=== PATIENT | female | born 1935 | race Caucasian/White ===

== ENCOUNTER → 2016-06-05 | Outpatient (CLI) | payer OTHER ==
[~2016-06-05] MED LIST: LEVO200I5 IV; QUE25T GT; TEMA7.5C11 PO
[2016-06-05 13:40] LABS: Basophils # (auto) 0 uL; Basophils % (auto) 0.4 % (0.0-2.0); Eosinophils # (auto) 0.1 uL; Eosinophils % (auto) 1.2 % (0.0-7.0); Hematocrit 44.6 % (36.0-46.0); Hemoglobin 14.7 g/dL (12.2-16.2); Lymphocytes # (auto) 2.3 uL; Mean Corpuscular Hemoglobin 28.9 pg (28.0-32.0); Mean Corpuscular Volume 87.5 fL (80.0-100.0); Mean Platelet Volume 9.8 fL (7.4-10.4); Monocytes # (auto) 0.5 uL; Monocytes % (auto) 8.8 % (0.0-12.0); Neutrophils % (auto) 50.6 % (37.0-80.0); Platelet Count (auto) 287 10^3/uL (140-450); Red Cell Distribution Width 13.9 % (11.6-16.0); White Blood Cell 5.9 10^3/uL (4.4-10.8)
[2016-06-05 14:13] LABS: Albumin 4.1 g/dL (3.4-5.0); BUN/Creatinine Ratio 19.8; Bilirubin, Total 0.6 mg/dL (0.2-1.0); Calcium 9.5 mg/dL (8.5-10.1); Potassium 4.4 mmol/L (3.5-5.1); Total Protein 7.8 g/dL (6.4-8.2)
== END | disposition home or self-care (01) ==
LOC: LAB 13:10
PROVIDERS: ATTEND Internal Medicine
DX: E78.00 Pure hypercholesterolemia, unspecified (principal)
CPT/HCPCS: 36415; 80053; 84439; 84443; 85025; 85379

== ENCOUNTER → 2016-11-21 | Outpatient (CLI) | payer OTHER ==
[2016-11-21 09:20] LABS: Albumin 2.9 g/dL (3.4-5.0); BUN/Creatinine Ratio 12.9; Bilirubin, Total 0.4 mg/dL (0.2-1.0); Calcium 8.9 mg/dL (8.5-10.1); Potassium 5.1 mmol/L (3.5-5.1); Total Protein 7.1 g/dL (6.4-8.2)
== END | disposition home or self-care (01) ==
LOC: LAB 08:34
PROVIDERS: ATTEND Internal Medicine
DX: E03.9 Hypothyroidism, unspecified (principal)
CPT/HCPCS: 36415; 80053; 84439; 84443

== ENCOUNTER → 2017-01-20 | Outpatient (CLI) | payer OTHER ==
[2017-01-20 13:19] LABS: Basophils # (auto) 0 uL; Basophils % (auto) 0.5 % (0.0-2.0); CONDITION Y; Eosinophils # (auto) 0.1 uL; Hematocrit 42.2 % (36.0-46.0); Hemoglobin 14.3 g/dL (12.2-16.2); Mean Corpuscular Hemoglobin 29.7 pg (28.0-32.0); Mean Corpuscular Volume 87.4 fL (80.0-100.0); Mean Platelet Volume 9.7 fL (7.4-10.4); Monocytes # (auto) 0.4 uL; Monocytes % (auto) 8.2 % (0.0-12.0); Neutrophils # (auto) 2.7 uL; Neutrophils % (auto) 51.3 % (37.0-80.0); Platelet Count (auto) 273 10^3/uL (140-450); Red Cell Distribution Width 15.3 % (11.6-16.0); White Blood Cell 5.4 10^3/uL (4.4-10.8)
[2017-01-20 13:49] LABS: Albumin 3.7 g/dL (3.4-5.0); BUN/Creatinine Ratio 15.7; Bilirubin, Total 0.6 mg/dL (0.2-1.0); Potassium 4.3 mmol/L (3.5-5.1); Total Protein 7.4 g/dL (6.4-8.2)
== END | disposition home or self-care (01) ==
LOC: LAB 12:40
PROVIDERS: ATTEND Internal Medicine
DX: E78.00 Pure hypercholesterolemia, unspecified (principal); I50.9 Heart failure, unspecified; J44.9 Chronic obstructive pulmonary disease, unspecified
CPT/HCPCS: 36415; 80053; 80061; 85025

== ENCOUNTER → 2017-05-02 | Outpatient (CLI) | payer OTHER | END | disposition home or self-care (01) | LOC: LAB 11:46 | PROVIDERS: ATTEND Internal Medicine | DX: N39.0 Urinary tract infection, site not specified (principal); K59.00 Constipation, unspecified | CPT/HCPCS: 87086; 87088; 87186 ==

== ENCOUNTER → 2017-09-10 | Outpatient (CLI) | payer OTHER ==
[2017-09-10 10:56] LABS: Basophils # (auto) 0.1 uL; Basophils % (auto) 1.2 % (0.0-2.0); Eosinophils # (auto) 0.1 uL; Eosinophils % (auto) 3.6 % (0.0-7.0); Hematocrit 43.3 % (36.0-46.0); Hemoglobin 14.6 g/dL (12.2-16.2); Lymphocytes # (auto) 1.4 uL; Lymphocytes % (auto) 34.8 % (10.0-50.0); Mean Corpuscular Hemoglobin 29.6 pg (28.0-32.0); Mean Corpuscular Hgb Conc. 33.8 g/dL (32.0-36.0); Mean Corpuscular Volume 87.6 fL (80.0-100.0); Monocytes # (auto) 0.5 uL; Monocytes % (auto) 11.1 % (0.0-12.0); Neutrophils % (auto) 49.3 % (37.0-80.0); Platelet Count (auto) 228 10^3/uL (140-450); Red Blood Cells 4.94 10^6/uL (4.0-5.20); Red Cell Distribution Width 13.4 % (11.8-14.3); White Blood Cell 4.1 10^3/uL (4.4-10.8)
[2017-09-10 11:24] LABS: Albumin 3.6 g/dL (3.4-5.0); BUN/Creatinine Ratio 21.1; Bilirubin, Total 0.5 mg/dL (0.2-1.0); Calcium 8.7 mg/dL (8.5-10.1); Potassium 4.2 mmol/L (3.5-5.1); Total Protein 7.3 g/dL (6.4-8.2)
== END | disposition home or self-care (01) ==
LOC: LAB 10:20
PROVIDERS: ATTEND Internal Medicine
DX: N18.3 Chronic kidney disease, stage 3 (moderate) (principal); E78.00 Pure hypercholesterolemia, unspecified; J44.9 Chronic obstructive pulmonary disease, unspecified
CPT/HCPCS: 36415; 80053; 85025

== ENCOUNTER 2017-11-25 19:28 | Inpatient (IN) | payer MEDICARE, OTHER ==
[~2017-11-25] VITALS: Ht 160 cm; Wt 74.3 kg
[2017-11-25 20:32] LABS: Basophils # (auto) 0.1 uL; Basophils % (auto) 0.7 % (0.0-2.0); Eosinophils # (auto) 0 uL; Eosinophils % (auto) 0.1 % (0.0-7.0); Hematocrit 40.9 % (36.0-46.0); Hemoglobin 13.7 g/dL (12.2-16.2); Lymphocytes # (auto) 2.8 uL; Lymphocytes % (auto) 19.8 % (10.0-50.0); Mean Corpuscular Hemoglobin 29.6 pg (28.0-32.0); Mean Corpuscular Hgb Conc. 33.5 g/dL (32.0-36.0); Mean Corpuscular Volume 88.4 fL (80.0-100.0); Monocytes % (auto) 6.8 % (0.0-12.0); Neutrophils # (auto) 10.4 uL; Neutrophils % (auto) 72.6 % (37.0-80.0); Nucleated Red Blood Cells % 0.1 %; Platelet Count (auto) 164 10^3/uL (140-450); Red Blood Cells 4.62 10^6/uL (4.0-5.20); Red Cell Distribution Width 13.9 % (11.8-14.3); White Blood Cell 14.3 10^3/uL (4.4-10.8)
[2017-11-25 20:49] LABS: Albumin 3.3 g/dL (3.4-5.0); BUN/Creatinine Ratio 14.2; Calcium 8.2 mg/dL (8.5-10.1); Potassium 3.8 mmol/L (3.5-5.1)
[2017-11-25 21:06] LABS: Urine Bacteria FEW /hpf (None Seen); Urine Blood TRACE /uL (Negative); Urine Specific Gravity 1.004 (1.001-1.035); Urine WBC 7 /hpf (0 - 5)
[2017-11-25 21:06] LABS: Total Protein 7.3 g/dL (6.4-8.2)
[2017-11-25] MEDS ORDERED: ASPirin 81 mg TAB PO ONE (22:00)
[2017-11-26] MEDS ORDERED: SODIUM CHLORIDE 0.9% 500 ML IV ONE ×2 (02:15→02:45)
[2017-11-26] MEDS ORDERED: diphenhdrAMINE HCL 50 MG/1 ML VL ONE (03:58)
[2017-11-26] MEDS ORDERED: cefTRIAXone 1GM/10ml IVPUSH 10 ML IV ONE (04:14)
[2017-11-26] MEDS ORDERED: ONDANSETRON HCL 4 MG/2 ML VIAL IV PRN (06:15)
[2017-11-26] MEDS ORDERED: LORazepam 0.5 MG TAB PO PRN (06:15)
[2017-11-26] MEDS ORDERED: MORPHINE SULF INJ 2 MG/ML SYRINGE 1ML IV PRN ×2 (06:15)
[2017-11-26] MEDS ORDERED: diphenhdrAMINE HCL 50 MG/1 ML VL IV PRN (06:15)
[2017-11-26] MEDS ORDERED: NITROGLYCERIN 0.4 MG SL TAB SL PRN (06:15)
[2017-11-26] MEDS ORDERED: ACETAMINOPHEN 325 MG TAB PO PRN (06:15)
[2017-11-26] MEDS: SODIUM CHLORIDE 0.9% 1,000 ML IV SCH ×2 (06:36→19:35)
[2017-11-26] MEDS: LEVOTHYROXINE SODIUM 25 MCG TAB PO SCH (07:30)
[2017-11-26] MEDS: HYDROcodone-ACET 5/325MG TAB PO PRN (08:31)
[2017-11-26] MEDS: ASPirin 81 mg TAB PO SCH (10:30)
[2017-11-26] MEDS: DOCUSATE SOD 100 MG CAP PO SCH ×2 (10:30→21:21)
[2017-11-26] MEDS: VENLAFAXINE HCL 37.5MG TABLET PO SCH (10:30)
[2017-11-26] MEDS: PANTOPRAZOLE 40 MG/10 ML VIAL IV SCH (10:30)
[2017-11-26] MEDS: ENOXAPARIN SOD 40 MG/0.4 ML SYRINGE SC SCH (10:31)
[2017-11-26] MEDS: AZITHROMYCIN 500MG/ 250ML 250 ML IV SCH (10:34)
[2017-11-26] MEDS ORDERED: QUET200T3 PO (16:13)
[2017-11-26] MEDS ORDERED: ROPI0.5T PO (16:13)
[2017-11-26] MEDS ORDERED: VEN75XRT PO (16:13)
[2017-11-26] MEDS ORDERED: LEVO50TA7 PO (16:13)
[2017-11-26] MEDS ORDERED: GABA300C10 PO (16:13)
[2017-11-26] MEDS ORDERED: ATOR20TA50 PO (16:13)
[2017-11-26] MEDS ORDERED: OMEP20TA PO (16:13)
[2017-11-26 17:19] VITALS: BP 96/47
[2017-11-26] MEDS: QUEtiapine FUMARATE 100 MG TAB PO SCH (21:21)
[2017-11-26 22:00] VITALS: BP 117/60
[2017-11-26] MEDS: ALBUTEROL SULF 2.5 MG/0.5ML(0.5%) NEB SOLN NEB PRN (22:30)
[2017-11-27 05:00] VITALS: BP 108/65
[2017-11-27] MEDS: LEVOTHYROXINE SODIUM 25 MCG TAB PO SCH (06:00)
[2017-11-27 06:18] LABS: Basophils # (auto) 0 uL; Basophils % (auto) 0.3 % (0.0-2.0); Eosinophils # (auto) 0.2 uL; Eosinophils % (auto) 3.2 % (0.0-7.0); Hematocrit 36.5 % (36.0-46.0); Hemoglobin 12.5 g/dL (12.2-16.2); Lymphocytes # (auto) 1.3 uL; Lymphocytes % (auto) 20.8 % (10.0-50.0); Mean Corpuscular Hgb Conc. 34.3 g/dL (32.0-36.0); Mean Corpuscular Volume 87.4 fL (80.0-100.0); Monocytes # (auto) 0.6 uL; Monocytes % (auto) 9.7 % (0.0-12.0); Neutrophils # (auto) 4.1 uL; Platelet Count (auto) 148 10^3/uL (140-450); Red Blood Cells 4.18 10^6/uL (4.0-5.20); Red Cell Distribution Width 13.9 % (11.8-14.3); White Blood Cell 6.2 10^3/uL (4.4-10.8)
[2017-11-27 06:42] LABS: BUN/Creatinine Ratio 19.1; Calcium 8.3 mg/dL (8.5-10.1)
[2017-11-27 09:00] VITALS: BP 102/44
[2017-11-27] MEDS ORDERED: cefTRIAXone 1GM/10ml IVPUSH 10 ML IV SCH (10:00)
[2017-11-27] MEDS: PANTOPRAZOLE 40 MG/10 ML VIAL IV SCH (10:18)
[2017-11-27] MEDS: AZITHROMYCIN 500MG/ 250ML 250 ML IV SCH (10:19)
[2017-11-27] MEDS: VENLAFAXINE HCL 37.5MG TABLET PO SCH (10:20)
[2017-11-27] MEDS: ASPirin 81 mg TAB PO SCH (10:20)
[2017-11-27] MEDS: ENOXAPARIN SOD 40 MG/0.4 ML SYRINGE SC SCH (10:20)
[2017-11-27] MEDS: DOCUSATE SOD 100 MG CAP PO SCH ×2 (10:20→21:21)
[2017-11-27] MEDS: ALBUTEROL SULF 2.5 MG/0.5ML(0.5%) NEB SOLN NEB PRN ×2 (10:25→19:04)
[2017-11-27] MEDS: HYDROcodone-ACET 5/325MG TAB PO PRN ×2 (12:12→22:56)
[2017-11-27] MEDS ORDERED: cefTRIAXone 1GM/10ml IVPUSH 10 ML IV ONE (12:30)
[2017-11-27] MEDS ORDERED: ADENOSINE 59 MG in GIVE UN-DILUTED 0 ML IV STA (13:27)
[2017-11-27 13:51] VITALS: BP 109/69
[2017-11-27] MEDS ORDERED: SODIUM CHLORIDE 0.9% 1,000 ML IV ONE (14:00)
[2017-11-27 16:23] LABS: INR 0.94 (0.9-1.15); Prothrombin Time 10.1 sec (9.27-12.13)
[2017-11-27 17:00] VITALS: BP 122/63
[2017-11-27] MEDS: SODIUM CHLORIDE 0.9% 1,000 ML IV SCH (19:15)
[2017-11-27 19:45] VITALS: BP 122/63
[2017-11-27] MEDS: ATORVASTATIN 20 MG TAB PO SCH (21:21)
[2017-11-27] MEDS: TEMAZEPAM 15 MG CAP PO PRN (21:21)
[2017-11-27] MEDS: QUEtiapine FUMARATE 100 MG TAB PO SCH (21:22)
[2017-11-27 22:00] VITALS: BP 132/70
[2017-11-28] MEDS: SODIUM CHLORIDE 0.9% 1,000 ML IV SCH ×3 (00:45→10:49)
[2017-11-28 05:13] VITALS: BP 130/69
[2017-11-28] MEDS: LEVOTHYROXINE SODIUM 25 MCG TAB PO SCH (05:37)
[2017-11-28 05:55] LABS: Basophils # (auto) 0 uL; Basophils % (auto) 0.6 % (0.0-2.0); Eosinophils # (auto) 0.2 uL; Eosinophils % (auto) 6.4 % (0.0-7.0); Hematocrit 35.2 % (36.0-46.0); Hemoglobin 11.9 g/dL (12.2-16.2); Lymphocytes # (auto) 1.3 uL; Lymphocytes % (auto) 33.8 % (10.0-50.0); Mean Corpuscular Hemoglobin 29.6 pg (28.0-32.0); Mean Corpuscular Hgb Conc. 33.7 g/dL (32.0-36.0); Mean Corpuscular Volume 87.9 fL (80.0-100.0); Monocytes # (auto) 0.4 uL; Monocytes % (auto) 9.7 % (0.0-12.0); Neutrophils # (auto) 1.9 uL; Neutrophils % (auto) 49.5 % (37.0-80.0); Platelet Count (auto) 161 10^3/uL (140-450); Red Blood Cells 4.01 10^6/uL (4.0-5.20); Red Cell Distribution Width 13.9 % (11.8-14.3); White Blood Cell 3.8 10^3/uL (4.4-10.8)
[2017-11-28 06:27] LABS: Albumin 2.6 g/dL (3.4-5.0); BUN/Creatinine Ratio 20.5; Bilirubin, Total 0.5 mg/dL (0.2-1.0); Potassium 4.1 mmol/L (3.5-5.1)
[2017-11-28 09:00] VITALS: BP 125/71
[2017-11-28] MEDS: ALBUTEROL SULF 2.5 MG/0.5ML(0.5%) NEB SOLN NEB PRN (10:24)
[2017-11-28] MEDS: PANTOPRAZOLE 40 MG/10 ML VIAL IV SCH (10:33)
[2017-11-28] MEDS: cefTRIAXone 1GM/10ml IVPUSH 10 ML IV SCH (10:33)
[2017-11-28] MEDS: AZITHROMYCIN 500MG/ 250ML 250 ML IV SCH (10:33)
[2017-11-28] MEDS: ASPirin 81 mg TAB PO SCH (10:34)
[2017-11-28] MEDS: DOCUSATE SOD 100 MG CAP PO SCH ×2 (10:34→22:03)
[2017-11-28] MEDS: ENOXAPARIN SOD 40 MG/0.4 ML SYRINGE SC SCH (10:35)
[2017-11-28] MEDS: VENLAFAXINE HCL 37.5MG TABLET PO SCH (10:35)
[2017-11-28 13:00] VITALS: BP 128/68
[2017-11-28] MEDS: ALBUTEROL SULF 2.5 MG/0.5ML(0.5%) NEB SOLN NEB SCH ×3 (14:15→22:47)
[2017-11-28 17:00] VITALS: BP 146/78
[2017-11-28] MEDS: HYDROcodone-ACET 5/325MG TAB PO PRN ×2 (18:10→22:30)
[2017-11-28 21:55] VITALS: BP 128/56
[2017-11-28] MEDS: ATORVASTATIN 20 MG TAB PO SCH (22:03)
[2017-11-28] MEDS: QUEtiapine FUMARATE 100 MG TAB PO SCH (22:30)
[2017-11-28] MEDS: TEMAZEPAM 15 MG CAP PO PRN (22:31)
[2017-11-29] MEDS: ALBUTEROL SULF 2.5 MG/0.5ML(0.5%) NEB SOLN NEB SCH ×3 (02:00→09:57)
[2017-11-29] MEDS: SODIUM CHLORIDE 0.9% 1,000 ML IV SCH ×3 (02:18→12:30)
[2017-11-29 05:00] VITALS: BP 131/71
[2017-11-29 06:02] LABS: Basophils # (auto) 0 uL; Basophils % (auto) 0.6 % (0.0-2.0); Eosinophils # (auto) 0.2 uL; Eosinophils % (auto) 5.4 % (0.0-7.0); Hematocrit 33.9 % (36.0-46.0); Hemoglobin 11.5 g/dL (12.2-16.2); Lymphocytes # (auto) 1.1 uL; Lymphocytes % (auto) 35.7 % (10.0-50.0); Mean Corpuscular Hemoglobin 29.8 pg (28.0-32.0); Mean Corpuscular Hgb Conc. 33.9 g/dL (32.0-36.0); Mean Corpuscular Volume 87.8 fL (80.0-100.0); Monocytes # (auto) 0.4 uL; Monocytes % (auto) 12.9 % (0.0-12.0); Neutrophils # (auto) 1.4 uL; Neutrophils % (auto) 45.4 % (37.0-80.0); Nucleated Red Blood Cells % 0.2 %; Platelet Count (auto) 179 10^3/uL (140-450); Red Blood Cells 3.86 10^6/uL (4.0-5.20); Red Cell Distribution Width 13.9 % (11.8-14.3)
[2017-11-29] MEDS: LEVOTHYROXINE SODIUM 25 MCG TAB PO SCH (06:11)
[2017-11-29 06:40] LABS: Albumin 2.6 g/dL (3.4-5.0); BUN/Creatinine Ratio 12.5; Bilirubin, Total 0.3 mg/dL (0.2-1.0); Calcium 7.8 mg/dL (8.5-10.1); Potassium 3.8 mmol/L (3.5-5.1); Total Protein 5.8 g/dL (6.4-8.2)
[2017-11-29 08:50] VITALS: BP 151/76
[2017-11-29] MEDS: ASPirin 81 mg TAB PO SCH (09:47)
[2017-11-29] MEDS: VENLAFAXINE HCL 37.5MG TABLET PO SCH (09:48)
[2017-11-29] MEDS: DOCUSATE SOD 100 MG CAP PO SCH (09:48)
[2017-11-29] MEDS: cefTRIAXone 1GM/10ml IVPUSH 10 ML IV SCH (09:48)
[2017-11-29] MEDS: PANTOPRAZOLE 40 MG/10 ML VIAL IV SCH (09:48)
[2017-11-29] MEDS: AZITHROMYCIN 500MG/ 250ML 250 ML IV SCH (09:50)
[2017-11-29] MEDS: ENOXAPARIN SOD 40 MG/0.4 ML SYRINGE SC SCH (09:51)
[2017-11-29 13:00] VITALS: BP 157/74
== END 2017-11-29 15:07 | disposition home or self-care (01) | DRG 871 ==
LOC: EDBD 19:28 → ER 19:35 → TELE 19:36 → TELE-WESTW 11-26 15:37
PROVIDERS: ADMIT Nurse Practitioner Family; ATTEND Family Medicine
DX: A41.9 Sepsis, unspecified organism (principal); G92 Toxic encephalopathy; J18.1 Lobar pneumonia, unspecified organism; N39.0 Urinary tract infection, site not specified; E87.0 Hyperosmolality and hypernatremia; E03.9 Hypothyroidism, unspecified; E78.00 Pure hypercholesterolemia, unspecified; E78.5 Hyperlipidemia, unspecified; E86.0 Dehydration; F32.9 Major depressive disorder, single episode, unspecified; I11.9 Hypertensive heart disease without heart failure; B96.29 Other Escherichia coli [E. coli] as the cause of diseases classified elsewhere; I70.0 Atherosclerosis of aorta; M16.0 Bilateral primary osteoarthritis of hip; M47.816 Spondylosis without myelopathy or radiculopathy, lumbar region; Z16.23 Resistance to quinolones and fluoroquinolones; Z90.49 Acquired absence of other specified parts of digestive tract
CPT/HCPCS: 36415; 70450; 71045; 72192; 73502; 78452; 80048; 80053; 81001; 82550; 83605; 83880; 84443; 84484; 85025; 85610; 85730; 87086; 87088; 87186; 93005; 93017; 94640; 94761; 96361; 96365; 96375; 97163; C9113; J0153

== ENCOUNTER 2018-01-01 05:22 | Emergency (ER) | payer OTHER ==
[~2018-01-01] VITALS: Ht 175.3 cm; Wt 68.0 kg
[~2018-01-01 05:22] MED LIST changes: +ATOR20TA50 PO; +GABA300C10 PO; -LEVO200I5 IV; +LEVO50TA7 PO; +OMEP20TA PO; -QUE25T GT; +QUET200T3 PO; +ROPI0.5T PO; -TEMA7.5C11 PO; +VEN75XRT PO
[2018-01-01 07:30] LABS: Basophils # (auto) 0 uL; Basophils % (auto) 0.6 % (0.0-2.0); Eosinophils # (auto) 0.2 uL; Hematocrit 40.4 % (36.0-46.0); Hemoglobin 13.6 g/dL (12.2-16.2); Lymphocytes # (auto) 1.6 uL; Lymphocytes % (auto) 27.5 % (10.0-50.0); Mean Corpuscular Hemoglobin 29.5 pg (28.0-32.0); Mean Corpuscular Hgb Conc. 33.6 g/dL (32.0-36.0); Mean Corpuscular Volume 87.8 fL (80.0-100.0); Monocytes # (auto) 0.6 uL; Monocytes % (auto) 9.4 % (0.0-12.0); Neutrophils # (auto) 3.5 uL; Neutrophils % (auto) 58.5 % (37.0-80.0); Nucleated Red Blood Cells % 0.2 %; Platelet Count (auto) 195 10^3/uL (140-450); Red Blood Cells 4.61 10^6/uL (4.0-5.20); Red Cell Distribution Width 14.3 % (11.8-14.3); White Blood Cell 5.9 10^3/uL (4.4-10.8)
[2018-01-01 07:51] LABS: Albumin 3.2 g/dL (3.4-5.0); BUN/Creatinine Ratio 17.5; Bilirubin, Total 0.4 mg/dL (0.2-1.0); Calcium 8.5 mg/dL (8.5-10.1); Potassium 4.2 mmol/L (3.5-5.1); Total Protein 7.1 g/dL (6.4-8.2)
[2018-01-01] MEDS ORDERED: ONDANSETRON HCL 4 MG/2 ML VIAL IV ONE (08:00)
[2018-01-01] MEDS ORDERED: MORPHINE SULFATE 4 MG/ML SYR/VIAL IV ONE (08:00)
[2018-01-01 09:29] VITALS: BP 122/62
== END 2018-01-01 09:07 | disposition home or self-care (01) ==
LOC: EDBD 05:22 → ER 05:30
DX: R55 Syncope and collapse (principal); Z79.899 Other long term (current) drug therapy
CPT/HCPCS: 36415; 70450; 72125; 73030; 73502; 80053; 85025; 93005; 96374; 96375; 99285; J2270; J2405

== ENCOUNTER 2018-01-03 10:39 | Emergency (ER) | payer OTHER ==
[~2018-01-03] VITALS: Ht 157.5 cm; Wt 66.2 kg
[2018-01-03] MEDS ORDERED: HYDROcodone-ACET 5/325MG TAB PO ONE (12:15)
[2018-01-03 12:47] VITALS: BP 138/63
== END 2018-01-03 13:53 | disposition home or self-care (01) ==
LOC: ER 10:39
DX: M79.1 Myalgia (principal)
CPT/HCPCS: 70486; 71250; 72131; 74176

== ENCOUNTER → 2018-02-13 | Outpatient (CLI) | payer OTHER, MEDICARE ==
[~2018-02-13] MED LIST changes: -VEN75XRT PO; +VENL75CA3 PO
[2018-02-13 12:15] LABS: Basophils # (auto) 0 uL; Basophils % (auto) 0.6 % (0.0-2.0); Eosinophils # (auto) 0.1 uL; Eosinophils % (auto) 1.4 % (0.0-7.0); Hematocrit 44.2 % (36.0-46.0); Hemoglobin 14.9 g/dL (12.2-16.2); Lymphocytes # (auto) 1.9 uL; Lymphocytes % (auto) 39.7 % (10.0-50.0); Mean Corpuscular Hemoglobin 29.3 pg (28.0-32.0); Mean Corpuscular Hgb Conc. 33.6 g/dL (32.0-36.0); Mean Corpuscular Volume 87.1 fL (80.0-100.0); Monocytes # (auto) 0.4 uL; Monocytes % (auto) 7.8 % (0.0-12.0); Neutrophils # (auto) 2.5 uL; Neutrophils % (auto) 50.5 % (37.0-80.0); Platelet Count (auto) 237 10^3/uL (140-450); Red Blood Cells 5.07 10^6/uL (4.0-5.20); White Blood Cell 4.9 10^3/uL (4.4-10.8)
[2018-02-13 12:51] LABS: Albumin 3.7 g/dL (3.4-5.0); BUN/Creatinine Ratio 15.5; Calcium 8.5 mg/dL (8.5-10.1); Potassium 4.2 mmol/L (3.5-5.1)
[2018-02-13 12:54] LABS: Bilirubin, Total 0.5 mg/dL (0.2-1.0); Total Protein 7.6 g/dL (6.4-8.2)
== END | disposition home or self-care (01) ==
LOC: LAB 12:04
PROVIDERS: ATTEND Internal Medicine
DX: Z01.818 Encounter for other preprocedural examination (principal); E78.5 Hyperlipidemia, unspecified; I10 Essential (primary) hypertension
CPT/HCPCS: 36415; 80053; 84439; 84443; 85025

== ENCOUNTER → 2018-02-23 | Outpatient (CLI) | payer OTHER, MEDICARE ==
[2018-02-23 12:32] LABS: Basophils # (auto) 0 uL; Basophils % (auto) 0.8 % (0.0-2.0); Eosinophils # (auto) 0.1 uL; Eosinophils % (auto) 1.7 % (0.0-7.0); Hemoglobin 14.3 g/dL (12.2-16.2); INR 0.95 (0.9-1.15); Lymphocytes # (auto) 1.7 uL; Lymphocytes % (auto) 35.1 % (10.0-50.0); Mean Corpuscular Hemoglobin 29.1 pg (28.0-32.0); Mean Corpuscular Hgb Conc. 33.3 g/dL (32.0-36.0); Mean Corpuscular Volume 87.5 fL (80.0-100.0); Monocytes # (auto) 0.5 uL; Monocytes % (auto) 9.6 % (0.0-12.0); Neutrophils # (auto) 2.6 uL; Neutrophils % (auto) 52.8 % (37.0-80.0); Nucleated Red Blood Cells % 0.1 %; Partial Thromboplastin Time 26.1 sec (23.78-33.04); Platelet Count (auto) 210 10^3/uL (140-450); Prothrombin Time 10.2 sec (9.27-12.13); Red Blood Cells 4.91 10^6/uL (4.0-5.20); Red Cell Distribution Width 14.4 % (11.8-14.3); White Blood Cell 4.9 10^3/uL (4.4-10.8)
[2018-02-23 14:02] LABS: Albumin 3.7 g/dL (3.4-5.0); Bilirubin, Total 0.7 mg/dL (0.2-1.0); Calcium 8.9 mg/dL (8.5-10.1); Potassium 4.5 mmol/L (3.5-5.1); Total Protein 7.8 g/dL (6.4-8.2)
[2018-02-23 14:06] LABS: BUN/Creatinine Ratio 15.7
== END | disposition home or self-care (01) ==
LOC: LAB 11:30
PROVIDERS: ATTEND Internal Medicine
DX: Z01.818 Encounter for other preprocedural examination (principal)
CPT/HCPCS: 36415; 80053; 85025; 85610; 85730

== ENCOUNTER 2018-02-26 07:50 | Inpatient (IN) | payer MEDICARE, OTHER ==
[~2018-02-26] VITALS: Ht 160 cm; Wt 68.0 kg
[2018-02-26] MEDS ORDERED: LIDOCAINE 2% (LOCAL ANESTH.) PF 5ml SDV ONE (08:04)
[2018-02-26] MEDS ORDERED: IODIXANOL 320MG/ML 100ML BTL IV ONE ×3 (08:08→11:16)
[2018-02-26] MEDS ORDERED: fentaNYL CITRATE 100 MCG/2 ML VL ONE (09:42)
[2018-02-26] MEDS ORDERED: ANGIOMAX 250 MG VIAL IV ONE (09:42)
[2018-02-26] MEDS ORDERED: SODIUM CHL 0.9% 50 ML ONE (09:43)
[2018-02-26] MEDS ORDERED: MIDAZOLAM HCL 1MG/1ML-2 ML VIAL ONE (09:43)
[2018-02-26] MEDS ORDERED: EPINEPHrine HCL 1 MG/10 ML SYRG ONE (10:59)
[2018-02-26] MEDS ORDERED: ATROPINE SULF 1 MG/10ml SYR ONE (10:59)
[2018-02-26] MEDS ORDERED: TICAGRELOR 90 MG TAB ONE (11:35)
[2018-02-26] MEDS ORDERED: ASPirin 325 MG TAB ONE (11:36)
[2018-02-26] MEDS ORDERED: SODIUM CHLORIDE 0.9% 1,000 ML IV SCH (12:06)
[2018-02-26] MEDS ORDERED: ACETAMINOPHEN 500 MG TAB PO PRN (12:15)
[2018-02-26] MEDS ORDERED: ONDANSETRON HCL 4 MG/2 ML VIAL IV PRN (12:15)
[2018-02-26] MEDS ORDERED: MORPHINE SULFATE 4 MG/ML SYR/VIAL IV PRN (12:15)
[2018-02-26] MEDS: GABAPENTIN 300 MG CAP PO SCH ×2 (12:15→21:57)
[2018-02-26] MEDS ORDERED: NITROGLYCERIN 0.4 MG SL TAB SL PRN ×2 (12:15)
[2018-02-26] MEDS: HYDROcodone-ACET 5/325MG TAB PO PRN ×2 (12:44→20:00)
[2018-02-26] MEDS: SODIUM CHLOR 0.9% PF (SALINE LOCK) 10ML VIAL/SYR IV SCH ×2 (14:00→21:52)
[2018-02-26 16:40] VITALS: BP 130/76
[2018-02-26] MEDS: ROPINIROLE HYDROCHLORIDE 0.5 MG PO SCH (18:00)
[2018-02-26] MEDS ORDERED: KETOROLAC TROMETH 30 MG/ML 1ML VIAL IV PRN (21:15)
[2018-02-26] MEDS: DOCUSATE SOD 100 MG CAP PO SCH (21:57)
[2018-02-26] MEDS: ATORVASTATIN 20 MG TAB PO SCH (21:57)
[2018-02-26] MEDS: KETOROLAC TROMETH 30 MG/ML 1ML VIAL IV PRN (21:58)
[2018-02-26 22:00] VITALS: BP 103/52
[2018-02-26] MEDS ORDERED: LACTULOSE 20Gm/30ML SOLN PO PRN (22:15)
[2018-02-26] MEDS: TICAGRELOR 60 MG TAB PO SCH (22:35)
[2018-02-27 05:00] VITALS: BP 119/67
[2018-02-27] MEDS: SODIUM CHLOR 0.9% PF (SALINE LOCK) 10ML VIAL/SYR IV SCH ×3 (06:13→23:01)
[2018-02-27] MEDS: LEVOTHYROXINE SODIUM 50 MCG TAB PO SCH (06:13)
[2018-02-27] MEDS: PANTOPRAZOLE 40 MG TAB PO SCH (06:13)
[2018-02-27] MEDS ORDERED: SODIUM CHLORIDE 0.9% 500 ML IV ONE (07:15)
[2018-02-27 09:12] VITALS: BP 73/38
[2018-02-27] MEDS: TICAGRELOR 60 MG TAB PO SCH ×2 (10:00→22:00)
[2018-02-27 12:20] VITALS: BP 85/43
[2018-02-27] MEDS: DOCUSATE SOD 100 MG CAP PO SCH ×2 (13:30→23:03)
[2018-02-27] MEDS: VENLAFAXINE HCL 37.5mg XR cap PO SCH (13:30)
[2018-02-27] MEDS: GABAPENTIN 300 MG CAP PO SCH ×2 (13:31→22:00)
[2018-02-27] MEDS: KETOROLAC TROMETH 30 MG/ML 1ML VIAL IV PRN ×2 (13:33→23:37)
[2018-02-27] MEDS ORDERED: IOHEXOL 350 MG/ML 100ML IJ ONE (15:39)
[2018-02-27] MEDS: ROPINIROLE HYDROCHLORIDE 0.5 MG PO SCH (17:54)
[2018-02-27 22:00] VITALS: BP 129/68
[2018-02-27] MEDS: ATORVASTATIN 20 MG TAB PO SCH (22:00)
[2018-02-28] VITALS (7 sets, daily range): BP systolic 96–128; BP diastolic 44–76
[2018-02-28] MEDS: PANTOPRAZOLE 40 MG TAB PO SCH (06:27)
[2018-02-28] MEDS: LEVOTHYROXINE SODIUM 50 MCG TAB PO SCH (06:27)
[2018-02-28] MEDS: SODIUM CHLOR 0.9% PF (SALINE LOCK) 10ML VIAL/SYR IV SCH ×3 (06:28→22:00)
[2018-02-28] MEDS: VENLAFAXINE HCL 37.5mg XR cap PO SCH (10:49)
[2018-02-28] MEDS: ASPirin 81 mg TAB PO SCH (10:50)
[2018-02-28] MEDS: TICAGRELOR 60 MG TAB PO SCH ×2 (10:50→23:20)
[2018-02-28] MEDS: DOCUSATE SOD 100 MG CAP PO SCH ×2 (10:50→23:21)
[2018-02-28] MEDS: GABAPENTIN 300 MG CAP PO SCH ×2 (10:50→23:20)
[2018-02-28 13:32] LABS: Basophils # (auto) 0 uL; Basophils % (auto) 0.3 % (0.0-2.0); Eosinophils # (auto) 0.1 uL; Eosinophils % (auto) 1.1 % (0.0-7.0); Hematocrit 30.4 % (36.0-46.0); Hemoglobin 10.6 g/dL (12.2-16.2); Lymphocytes # (auto) 1.6 uL; Lymphocytes % (auto) 28.5 % (10.0-50.0); Mean Corpuscular Hemoglobin 30.6 pg (28.0-32.0); Mean Corpuscular Hgb Conc. 34.9 g/dL (32.0-36.0); Mean Corpuscular Volume 87.8 fL (80.0-100.0); Monocytes # (auto) 0.5 uL; Monocytes % (auto) 9.2 % (0.0-12.0); Neutrophils # (auto) 3.3 uL; Neutrophils % (auto) 60.9 % (37.0-80.0); Nucleated Red Blood Cells % 0.1 %; Platelet Count (auto) 195 10^3/uL (140-450); Red Blood Cells 3.46 10^6/uL (4.0-5.20); Red Cell Distribution Width 14.1 % (11.8-14.3); White Blood Cell 5.4 10^3/uL (4.4-10.8)
[2018-02-28 13:53] LABS: Albumin 3.4 g/dL (3.4-5.0); BUN/Creatinine Ratio 22.8; Bilirubin, Total 0.4 mg/dL (0.2-1.0); Calcium 8.4 mg/dL (8.5-10.1); Potassium 4.7 mmol/L (3.5-5.1); Total Protein 7.1 g/dL (6.4-8.2)
[2018-02-28] MEDS: ROPINIROLE HYDROCHLORIDE 0.5 MG PO SCH (18:00)
[2018-02-28] MEDS: ATORVASTATIN 20 MG TAB PO SCH (23:20)
[2018-03-01] MEDS: HYDROcodone-ACET 5/325MG TAB PO PRN (04:48)
[2018-03-01 05:00] VITALS: BP 120/71
[2018-03-01] MEDS: SODIUM CHLOR 0.9% PF (SALINE LOCK) 10ML VIAL/SYR IV SCH ×3 (06:00→23:06)
[2018-03-01] MEDS: PANTOPRAZOLE 40 MG TAB PO SCH (06:30)
[2018-03-01] MEDS: LEVOTHYROXINE SODIUM 50 MCG TAB PO SCH (07:00)
[2018-03-01 09:00] VITALS: BP 119/83
[2018-03-01] MEDS: TICAGRELOR 60 MG TAB PO SCH ×2 (09:42→22:32)
[2018-03-01] MEDS: GABAPENTIN 300 MG CAP PO SCH ×2 (09:43→22:33)
[2018-03-01] MEDS: DOCUSATE SOD 100 MG CAP PO SCH ×2 (09:43→22:32)
[2018-03-01] MEDS: VENLAFAXINE HCL 37.5mg XR cap PO SCH (09:44)
[2018-03-01] MEDS: ASPirin 81 mg TAB PO SCH (09:44)
[2018-03-01 13:00] VITALS: BP 129/46
[2018-03-01 17:00] VITALS: BP 110/52
[2018-03-01] MEDS: ROPINIROLE HYDROCHLORIDE 0.5 MG PO SCH (17:17)
[2018-03-01 22:00] VITALS: BP 107/55
[2018-03-01] MEDS: ATORVASTATIN 20 MG TAB PO SCH (22:33)
[2018-03-01] MEDS: KETOROLAC TROMETH 30 MG/ML 1ML VIAL IV PRN (23:06)
[2018-03-02 05:00] VITALS: BP 107/57
[2018-03-02] MEDS: PANTOPRAZOLE 40 MG TAB PO SCH (07:01)
[2018-03-02] MEDS: SODIUM CHLOR 0.9% PF (SALINE LOCK) 10ML VIAL/SYR IV SCH ×3 (07:01→23:01)
[2018-03-02] MEDS: LEVOTHYROXINE SODIUM 50 MCG TAB PO SCH (07:01)
[2018-03-02 09:16] VITALS: BP 103/46
[2018-03-02] MEDS: TICAGRELOR 60 MG TAB PO SCH ×2 (09:54→23:02)
[2018-03-02] MEDS: ASPirin 81 mg TAB PO SCH (09:54)
[2018-03-02] MEDS: GABAPENTIN 300 MG CAP PO SCH ×2 (09:54→23:02)
[2018-03-02] MEDS: VENLAFAXINE HCL 37.5mg XR cap PO SCH (09:54)
[2018-03-02] MEDS: DOCUSATE SOD 100 MG CAP PO SCH ×2 (09:55→23:02)
[2018-03-02 13:00] VITALS: BP 118/65
[2018-03-02 17:14] VITALS: BP 102/46
[2018-03-02] MEDS: ROPINIROLE HYDROCHLORIDE 0.5 MG PO SCH (19:16)
[2018-03-02 22:00] VITALS: BP 130/72
[2018-03-02] MEDS: ATORVASTATIN 20 MG TAB PO SCH (23:02)
[2018-03-03 05:00] VITALS: BP 95/49
[2018-03-03] MEDS: PANTOPRAZOLE 40 MG TAB PO SCH (06:56)
[2018-03-03] MEDS: LEVOTHYROXINE SODIUM 50 MCG TAB PO SCH (06:56)
[2018-03-03] MEDS: SODIUM CHLOR 0.9% PF (SALINE LOCK) 10ML VIAL/SYR IV SCH ×2 (07:29→14:12)
[2018-03-03 08:53] VITALS: BP 100/50
[2018-03-03] MEDS: TICAGRELOR 60 MG TAB PO SCH (10:08)
[2018-03-03] MEDS: GABAPENTIN 300 MG CAP PO SCH (10:08)
[2018-03-03] MEDS: ASPirin 81 mg TAB PO SCH (10:08)
[2018-03-03] MEDS: DOCUSATE SOD 100 MG CAP PO SCH (10:09)
[2018-03-03] MEDS: VENLAFAXINE HCL 37.5mg XR cap PO SCH (10:09)
[2018-03-03 13:00] VITALS: BP 109/51
[2018-03-03 14:59] VITALS: BP 109/51
== END 2018-03-03 16:05 | disposition home or self-care (01) | DRG 246 ==
LOC: CATH 07:50 → TELE-EAST 07:51
PROVIDERS: ADMIT Internal Medicine Cardiovascular Disease; ATTEND Internal Medicine Cardiovascular Disease
PROC: 027136Z Dilation of Coronary Artery, Two Arteries with Three Drug-eluting Intraluminal Devices, Percutaneous Approach (ICD-10-PCS; principal; 2018-02-26)
PROC: 4A023N7 Measurement of Cardiac Sampling and Pressure, Left Heart, Percutaneous Approach (ICD-10-PCS; 2018-02-26)
PROC: B2111ZZ Fluoroscopy of Multiple Coronary Arteries using Low Osmolar Contrast (ICD-10-PCS; 2018-02-26)
DX: I25.110 Atherosclerotic heart disease of native coronary artery with unstable angina pectoris (principal); K66.1 Hemoperitoneum; Z82.49 Family history of ischemic heart disease and other diseases of the circulatory system; I10 Essential (primary) hypertension; K57.30 Diverticulosis of large intestine without perforation or abscess without bleeding; E78.5 Hyperlipidemia, unspecified; Z95.5 Presence of coronary angioplasty implant and graft; I73.9 Peripheral vascular disease, unspecified
CPT/HCPCS: 36415; 71046; 74178; 80053; 85025; 92928; 93458; 99152; A6257; C1874; J1885; J2001; J2250; J2405; Q9967

== ENCOUNTER → 2018-03-18 | Outpatient (CLI) | payer OTHER | END | disposition home or self-care (01) | LOC: Rad HDHVI 10:06 | PROVIDERS: ATTEND Internal Medicine Cardiovascular Disease | DX: I10 Essential (primary) hypertension (principal); I25.10 Atherosclerotic heart disease of native coronary artery without angina pectoris; R00.2 Palpitations; R06.02 Shortness of breath | CPT/HCPCS: 93306 ==

== ENCOUNTER → 2018-07-22 | Outpatient (CLI) | payer OTHER, MEDICARE ==
[2018-07-22 11:18] LABS: Basophils # (auto) 0 uL; Basophils % (auto) 0.3 % (0.0-2.0); Eosinophils # (auto) 0.1 uL; Eosinophils % (auto) 2.3 % (0.0-7.0); Hematocrit 39.7 % (36.0-46.0); Hemoglobin 13.3 g/dL (12.2-16.2); Lymphocytes # (auto) 1.5 uL; Lymphocytes % (auto) 25.1 % (10.0-50.0); Mean Corpuscular Hemoglobin 29.2 pg (28.0-32.0); Mean Corpuscular Hgb Conc. 33.4 g/dL (32.0-36.0); Mean Corpuscular Volume 87.4 fL (80.0-100.0); Monocytes # (auto) 0.5 uL; Monocytes % (auto) 7.4 % (0.0-12.0); Neutrophils % (auto) 64.9 % (37.0-80.0); Platelet Count (auto) 227 10^3/uL (140-450); Red Blood Cells 4.54 10^6/uL (4.0-5.20); Red Cell Distribution Width 14.8 % (11.8-14.3); White Blood Cell 6.1 10^3/uL (4.4-10.8)
[2018-07-22 11:32] LABS: Albumin 3.2 g/dL (3.4-5.0); Calcium 7.9 mg/dL (8.5-10.1); Potassium 4.5 mmol/L (3.5-5.1)
[2018-07-22 11:36] LABS: Bilirubin, Total 0.5 mg/dL (0.2-1.0)
== END | disposition home or self-care (01) ==
LOC: LAB 10:34
PROVIDERS: ATTEND Internal Medicine
DX: E03.9 Hypothyroidism, unspecified (principal); R53.83 Other fatigue
CPT/HCPCS: 36415; 80053; 84439; 84443; 85025

== ENCOUNTER → 2018-10-20 | Outpatient (CLI) | payer OTHER, MEDICARE ==
[2018-10-20 10:19] LABS: Urine WBC None Seen /hpf (0 - 5)
[2018-10-20 10:46] LABS: Basophils # (auto) 0 uL; Basophils % (auto) 0.9 % (0.0-2.0); Eosinophils # (auto) 0.3 uL; Eosinophils % (auto) 5.4 % (0.0-7.0); Hematocrit 40.8 % (36.0-46.0); Hemoglobin 13.7 g/dL (12.2-16.2); Lymphocytes # (auto) 1.3 uL; Mean Corpuscular Hgb Conc. 33.5 g/dL (32.0-36.0); Mean Corpuscular Volume 86.5 fL (80.0-100.0); Monocytes # (auto) 0.5 uL; Monocytes % (auto) 9.7 % (0.0-12.0); Neutrophils # (auto) 2.9 uL; Nucleated Red Blood Cells % 0.1 %; Platelet Count (auto) 212 10^3/uL (140-450); Red Blood Cells 4.71 10^6/uL (4.0-5.20); Red Cell Distribution Width 14.3 % (11.8-14.3); Urine Bacteria NONE SEEN /hpf (None Seen); Urine Blood Negative /uL (Negative); Urine Specific Gravity 1.004 (1.001-1.035)
[2018-10-20 10:50] LABS: Potassium 4.3 mmol/L (3.5-5.1)
[2018-10-20 11:22] LABS: BUN/Creatinine Ratio 14.6
[2018-10-20 11:23] LABS: Albumin 3.6 g/dL (3.4-5.0); Bilirubin, Total 0.4 mg/dL (0.2-1.0); Calcium 9.2 mg/dL (8.5-10.1); Total Protein 7.4 g/dL (6.4-8.2)
== END | disposition home or self-care (01) ==
LOC: LAB 09:25
PROVIDERS: ATTEND Internal Medicine
DX: I12.9 Hypertensive chronic kidney disease with stage 1 through stage 4 chronic kidney disease, or unspecified chronic kidney disease (principal); N18.3 Chronic kidney disease, stage 3 (moderate); K21.9 Gastro-esophageal reflux disease without esophagitis; I25.10 Atherosclerotic heart disease of native coronary artery without angina pectoris
CPT/HCPCS: 36415; 80053; 80061; 81001; 84439; 84443; 85025; 85652

== ENCOUNTER 2019-01-11 09:56 | Inpatient (IN) | payer MEDICARE, OTHER ==
[~2019-01-11] VITALS: Ht 165.1 cm; Wt 64.4 kg
[~2019-01-11 09:56] MED LIST changes: -ROPI0.5T PO; +ROPI0.5T16 PO; +VENL37.572 PO; -VENL75CA3 PO
[2019-01-11] MEDS ORDERED: methylPREDNISolone SOD SUCC 125 MG/2 ML VL IV ONE (10:30)
[2019-01-11 10:55] LABS: Basophils # (auto) 0.1 uL; Basophils % (auto) 0.6 % (0.0-2.0); Eosinophils # (auto) 0 uL; Hematocrit 40.6 % (36.0-46.0); Hemoglobin 13.3 g/dL (12.2-16.2); Lymphocytes # (auto) 1.3 uL; Lymphocytes % (auto) 8.1 % (10.0-50.0); Mean Corpuscular Hemoglobin 28.4 pg (28.0-32.0); Mean Corpuscular Hgb Conc. 32.8 g/dL (32.0-36.0); Mean Corpuscular Volume 86.7 fL (80.0-100.0); Monocytes # (auto) 0.5 uL; Monocytes % (auto) 3.3 % (0.0-12.0); Neutrophils # (auto) 14.7 uL; Platelet Count (auto) 218 10^3/uL (140-450); Red Blood Cells 4.68 10^6/uL (4.0-5.20); Red Cell Distribution Width 14.7 % (11.8-14.3); White Blood Cell 16.7 10^3/uL (4.4-10.8)
[2019-01-11 11:04] LABS: Alanine Aminotransferase 36 U/L (13-56); Albumin 3.4 g/dL (3.4-5.0); Anion Gap 12 (5-15); Aspartate Aminotransferase 38 U/L (15-37); BUN/Creatinine Ratio 13.8; Blood Urea Nitrogen 21 mg/dL (7-18); Calcium 8.2 mg/dL (8.5-10.1); Carbon Dioxide 22 mmol/L (21-32); Chloride 136 mmol/L (98-107); GFR African American 42 mL/min; GFR Non-African American 35 mL/min; Glucose 131 mg/dL (74-106); Magnesium 2.4 mg/dL (1.6-2.6); Potassium 4.4 mmol/L (3.5-5.1)
[2019-01-11 11:09] LABS: Alkaline Phosphatase 111 U/L (45-117); Bilirubin, Total 1.2 mg/dL (0.2-1.0); Lactic Acid w/Reflex 3.6 mmol/L (0.4-2.0)
[2019-01-11 11:11] LABS: INR 1.08 (0.9-1.15); Partial Thromboplastin Time 27.4 sec (23.64-32.05)
[2019-01-11 11:14] LABS: Sodium 170 mmol/L (136-145)
[2019-01-11 11:15] LABS: Urine Bacteria NONE SEEN /hpf (None Seen); Urine Blood TRACE /uL (Negative); Urine Specific Gravity 1.014 (1.001-1.035); Urine WBC <1 /hpf (0 - 5)
[2019-01-11] MEDS ORDERED: cefTRIAXone 1GM/50ML D5W 50 ML IV ONE ×2 (11:15→12:00)
[2019-01-11] MEDS ORDERED: SODIUM CHLORIDE 0.9% 1,000 ML IV ONE ×3 (11:45→15:00)
[2019-01-11] MEDS ORDERED: NITROGLYCERIN 0.4 MG SL TAB SL PRN (11:45)
[2019-01-11] MEDS ORDERED: ACETAMINOPHEN 500 MG TAB PO PRN (11:45)
[2019-01-11] MEDS ORDERED: MORPHINE SULF INJ 2 MG/ML SYRINGE 1ML IV PRN ×2 (11:45)
[2019-01-11] MEDS ORDERED: D5W 5% 1,000 ML IV SCH ×3 (11:45→13:45)
[2019-01-11] MEDS ORDERED: ONDANSETRON HCL 4 MG/2 ML VIAL IV PRN (11:45)
[2019-01-11] MEDS ORDERED: HYDROcodone-ACET 5/325MG TAB PO PRN (11:45)
[2019-01-11] MEDS ORDERED: FAMOTIDINE 20 MG TAB PO ONE (12:00)
[2019-01-11] MEDS ORDERED: LEVOTHYROXINE SODIUM 50 MCG TAB PO ONE (12:00)
[2019-01-11] MEDS ORDERED: AZITHROMYCIN 500MG/ 250ML 250 ML IV ONE (12:00)
[2019-01-11] MEDS: GABAPENTIN 300 MG CAP PO SCH ×2 (12:11→21:50)
[2019-01-11] MEDS: ALBUTEROL SULF 2.5 MG/0.5ML(0.5%) NEB SOLN NEB SCH ×2 (12:20→20:00)
[2019-01-11] MEDS: IPRATROPIUM BROM 0.5 MG/2.5ML INH SOL NEB SCH ×2 (12:20→20:00)
[2019-01-11] MEDS: CLINDAMYCIN 300MG IV 50 ML IV SCH ×2 (14:11→21:44)
[2019-01-11 14:15] LABS: BUN/Creatinine Ratio 15.9; Calcium 6.9 mg/dL (8.5-10.1); Potassium 3.3 mmol/L (3.5-5.1)
[2019-01-11] MEDS ORDERED: NOREPINEPHRINE 8 MG/250ML KIT 250 ML IV ONE ×2 (15:05→15:06)
[2019-01-11] MEDS: NOREPINEPHRINE 8 MG/250ML KIT 250 ML IV SCH (15:11)
[2019-01-11 16:06] LABS: Calcium 6.6 mg/dL (8.5-10.1); Potassium 4.4 mmol/L (3.5-5.1)
[2019-01-11 16:08] LABS: BUN/Creatinine Ratio 17.7
[2019-01-12 01:33] VITALS: BP 124/57
[2019-01-12] MEDS: ALBUTEROL SULF 2.5 MG/0.5ML(0.5%) NEB SOLN NEB SCH ×3 (05:29→18:55)
[2019-01-12] MEDS: IPRATROPIUM BROM 0.5 MG/2.5ML INH SOL NEB SCH ×3 (05:29→18:55)
[2019-01-12] MEDS: CLINDAMYCIN 300MG IV 50 ML IV SCH ×3 (05:57→21:47)
[2019-01-12 05:58] LABS: Basophils # (auto) 0 uL; Eosinophils # (auto) 0 uL; Hemoglobin 12.6 g/dL (12.2-16.2); Lymphocytes % (auto) 4.6 % (10.0-50.0); Mean Corpuscular Hemoglobin 28.9 pg (28.0-32.0); Mean Corpuscular Volume 87.3 fL (80.0-100.0); Monocytes # (auto) 0.8 uL; Monocytes % (auto) 3.6 % (0.0-12.0); Neutrophils # (auto) 19.7 uL; Neutrophils % (auto) 91.8 % (37.0-80.0); Platelet Count (auto) 214 10^3/uL (140-450); Red Blood Cells 4.35 10^6/uL (4.0-5.20); Red Cell Distribution Width 14.6 % (11.8-14.3); White Blood Cell 21.5 10^3/uL (4.4-10.8)
[2019-01-12 06:23] LABS: Albumin 2.9 g/dL (3.4-5.0); BUN/Creatinine Ratio 22.6; Bilirubin, Total 0.4 mg/dL (0.2-1.0); Calcium 8.6 mg/dL (8.5-10.1); Magnesium 2.3 mg/dL (1.6-2.6)
[2019-01-12] MEDS: LEVOTHYROXINE SODIUM 50 MCG TAB PO SCH (07:00)
[2019-01-12] MEDS: cefTRIAXone 1GM/50ML D5W 50 ML IV SCH (09:20)
[2019-01-12] MEDS ORDERED: AZITHROMYCIN 500MG/ 250ML 250 ML IV SCH (10:00)
[2019-01-12] MEDS: FAMOTIDINE 20 MG TAB PO SCH (10:24)
[2019-01-12] MEDS: GABAPENTIN 300 MG CAP PO SCH ×2 (10:24→21:47)
[2019-01-12] MEDS: AZITHROMYCIN 500MG/ 250ML 250 ML IV SCH (10:24)
[2019-01-12] MEDS: SOD CHL 0.45% 1,000 ML IV SCH (11:15)
[2019-01-12] MEDS: NOREPINEPHRINE 8 MG/250ML KIT 250 ML IV SCH (15:07)
[2019-01-13] MEDS: SOD CHL 0.45% 1,000 ML IV SCH ×2 (01:03→13:55)
[2019-01-13] MEDS ORDERED: ALBUMIN 25% 50 ML IV ONE (01:15)
[2019-01-13] MEDS ORDERED: ALBUMIN 5% 250 ML IV ONE (01:15)
--- NOTE | 2019-01-13 03:32 | NUR ---
Telemetry admit from ER EPIFANIO MAYS admitted to Telemetry unit after SBAR received. Patient oriented to Toya Beckham, primary RN, unit, room, bed, and unit policies regarding patient care and visiting hours. Patient now on continuous telemetry monitoring, tele box #25 and telemetry reading on arrival to unit is NSR @70BPM. Patient weighed by bed scale and encouraged to call if they need something. All questions and concerns addressed, patient verbalized understanding. Note: Patient is awake and alert x3. Sitter at bedside for patient safety. Valverde catheter patent and draining to gravity, clear yellow urine. IV fluids running 0.45%NS @75ml/hr to left upper arm midline. Bed alarm placed on.
[2019-01-13 03:53] VITALS: BP 106/50
--- NOTE | 2019-01-13 06:15 | NUR ---
AMBULATION PATIENT AMBULATED TO BATHROOM VIA WALKER WITH STANDBY TO MIN ASSIST. NON SLIP SOCKS PLACED ON PATIENT. PATIENT ATTEMPTED TO HAVE A BOWEL MOVEMENT BUT STATES SHE DID NOT GO. PATIENT RETURNED TO BED WITHOUT INCIDENT. SITTER REMAINS AT BEDSIDE FOR PATIENT SAFETY.
[2019-01-13] MEDS: LEVOTHYROXINE SODIUM 50 MCG TAB PO SCH (06:31)
[2019-01-13] MEDS: CLINDAMYCIN 300MG IV 50 ML IV SCH (06:31)
[2019-01-13] MEDS: IPRATROPIUM BROM 0.5 MG/2.5ML INH SOL NEB SCH ×3 (07:22→18:54)
[2019-01-13] MEDS: ALBUTEROL SULF 2.5 MG/0.5ML(0.5%) NEB SOLN NEB SCH ×3 (07:22→18:54)
--- NOTE | 2019-01-13 07:50 | NUR ---
Opening Shift Note Assumed care of patient, awake and oriented to self, patient on room air, no S/S of distress/SOB or pain. Bed at lowest locked position, side rails up x2 and call light within reach. Bed alarm on .Instructed on POC and to call for assist PRN, will continue to monitor for changes Q1hr and PRN. Sitter at bedside.
[2019-01-13 08:00] VITALS: BP 106/61
[2019-01-13 09:00] VITALS: BP 106/61
--- NOTE | 2019-01-13 09:30 | NUR ---
Assisted patient out of bed. Patient ambulated to bathroom with walker, standby assist provided.Non slip socks placed on patient. Patient attempted to have a BM. Patient did not have a BM. Ambulated back to bed. Sitter at bedside. Bed at lowest locked position.
[2019-01-13] MEDS: AZITHROMYCIN 500MG/ 250ML 250 ML IV SCH (10:12)
[2019-01-13] MEDS: cefTRIAXone 1GM/50ML D5W 50 ML IV SCH (10:12)
[2019-01-13] MEDS: GABAPENTIN 300 MG CAP PO SCH ×2 (10:12→22:08)
[2019-01-13] MEDS: FAMOTIDINE 20 MG TAB PO SCH (10:13)
[2019-01-13 10:14] LABS: Basophils # (auto) 0 uL; Basophils % (auto) 0.2 % (0.0-2.0); Eosinophils # (auto) 0.1 uL; Eosinophils % (auto) 0.6 % (0.0-7.0); Hematocrit 32.4 % (36.0-46.0); Lymphocytes # (auto) 1.2 uL; Lymphocytes % (auto) 14.8 % (10.0-50.0); Mean Corpuscular Hgb Conc. 33.9 g/dL (32.0-36.0); Mean Corpuscular Volume 85.6 fL (80.0-100.0); Monocytes # (auto) 0.6 uL; Monocytes % (auto) 7.5 % (0.0-12.0); Neutrophils # (auto) 6.5 uL; Neutrophils % (auto) 76.9 % (37.0-80.0); Nucleated Red Blood Cells % 0.1 %; Platelet Count (auto) 188 10^3/uL (140-450); Red Blood Cells 3.79 10^6/uL (4.0-5.20); White Blood Cell 8.4 10^3/uL (4.4-10.8)
[2019-01-13 10:35] LABS: Albumin 2.7 g/dL (3.4-5.0); Potassium 3.8 mmol/L (3.5-5.1)
[2019-01-13 10:38] LABS: BUN/Creatinine Ratio 26.8; Bilirubin, Total 0.3 mg/dL (0.2-1.0); Total Protein 6.3 g/dL (6.4-8.2)
[2019-01-13] MEDS ORDERED: VENLAFAXINE HCL 37.5mg XR cap PO ONE (11:30)
[2019-01-13 13:00] VITALS: BP 140/81
--- NOTE | 2019-01-13 13:25 | NUR ---
Valverde catheter discontinued. Order to discontinue Valverde catheter. Valverde dc'd with clean technique following deflation of balloon. Patient tolerated well with no complaints of pain. Continue care.
--- NOTE | 2019-01-13 14:00 | NUR ---
Patient had a BM, per MANUFACTURING DIRECTOR.
--- NOTE | 2019-01-13 16:57 | NUR ---
assessment Patient is a 83 year old female who is alert and oriented. Prior to admission patient lived home alone and functioned independently. Per patient her PCP is Dr Lilly and Dr Jarrell. Patient informed me she has a fww, wheelchair and a cane for home use. Patient informed me she has fallen many times and needs home PT. Patient informed me she wanted to take all her medications to fall asleep. I have provided patient with resources for [facility] for a caregiver through the [place] aid and assist program and assisted living and [facility] and cares. I Will continue to monitor for PT eval. Addendum: 01/13/19 at 1659 by Naian RICARDO Amended: Links added. Addendum: 01/14/19 at 1802 by Naina RICARDO amend to note I asked patient about her previous visit when patient informed me she wanted to take all her medications to fall asleep. I asked patient if she has had any thoughts of self harm or want to fall asleep and not wake up. Patient informed me she has been feeling better and has no thoughts of self harm. Patient did informed me that she has fallen many times and needs more help at home now. Dequan has met with patient at bedside and is completing application for a free caregiver through the [facility].
[2019-01-13 17:00] VITALS: BP 134/73
--- NOTE | 2019-01-13 17:00 | NUR ---
re-assessment Per consult lives alone- needs assistance. Patient has been referred to [facility] for a caregiver and given resources for board and cares and assisted living. See previous note. Addendum: 01/13/19 at 1701 by Naina Bullard Amended: Links added.
--- NOTE | 2019-01-13 18:47 | NUR ---
PATIENT C/O CHEST PAIN 03/11. PLACED PATIENT ON NASAL CANULA 2L. VS: ARE FOLLOWS: BP 116/88, HR 86, 93% O2, RR, 20. WILL OBTAIN EKG. Addendum: 01/13/19 at 1850 by Rosalina King RN EKG READS NORMAL SINUS RHYTHM, PATIENT STATES SHE FEELS BETTER. WILL CONTINUE TO MONITOR . SITTER AT BEDSIDE.
--- NOTE | 2019-01-13 18:57 | NUR ---
CLOSING NOTE PATIENT IS COMFORTABLY RESTING IN BED, ON 2L NC, NO S/S OF DISTRESS/SOB. BED AT LOWEST LOCKED POSITION, BED SIDE RAILS UP X2 AND CALL LIGHT WITHIN REACH. WILL ENDORSE CARE TO NOC RN. SITTER AT BEDSIDE
--- NOTE | 2019-01-13 19:00 | NUR ---
OPENING NOTE Received report from day shift RN. Patient is A&O X's 2 with no s/s of respiratory distress noted. She is sitting in the chair at bedside. Sitter is present. Educated patient on POC and to use call light when in need of assistance. Will continue to monitor for changes and round hourly/PRN.
[2019-01-13 22:00] VITALS: BP 124/77
--- NOTE | 2019-01-13 23:45 | NUR ---
ROUNDS Patient still sitting on chair at bedside. She is currently reading a newspaper. Sitter is at bedside. No s/s of distress noted. Offered to help patient in bed at this time so she can get some rest. Patient reported she would like to stay in the chair. Will continue to monitor
[2019-01-14] MEDS: SOD CHL 0.45% 1,000 ML IV SCH (03:33)
[2019-01-14 05:00] VITALS: BP 126/78
[2019-01-14] MEDS: LEVOTHYROXINE SODIUM 50 MCG TAB PO SCH (06:26)
[2019-01-14] MEDS: ALBUTEROL SULF 2.5 MG/0.5ML(0.5%) NEB SOLN NEB SCH ×3 (06:45→18:21)
[2019-01-14] MEDS: IPRATROPIUM BROM 0.5 MG/2.5ML INH SOL NEB SCH ×3 (06:45→18:21)
[2019-01-14 07:27] LABS: Basophils # (auto) 0 uL; Basophils % (auto) 0.6 % (0.0-2.0); Eosinophils # (auto) 0.1 uL; Eosinophils % (auto) 1.6 % (0.0-7.0); Hematocrit 38.8 % (36.0-46.0); Lymphocytes # (auto) 1.5 uL; Lymphocytes % (auto) 20.6 % (10.0-50.0); Mean Corpuscular Hemoglobin 28.7 pg (28.0-32.0); Mean Corpuscular Hgb Conc. 33.4 g/dL (32.0-36.0); Mean Corpuscular Volume 85.8 fL (80.0-100.0); Monocytes # (auto) 0.5 uL; Neutrophils # (auto) 5.1 uL; Neutrophils % (auto) 70.2 % (37.0-80.0); Nucleated Red Blood Cells % 0.1 %; Platelet Count (auto) 247 10^3/uL (140-450); Red Blood Cells 4.53 10^6/uL (4.0-5.20); Red Cell Distribution Width 14.8 % (11.8-14.3); White Blood Cell 7.2 10^3/uL (4.4-10.8)
--- NOTE | 2019-01-14 07:40 | NUR ---
Opening Shift Note Assumed care of patient, awake and oriented to self, patient on 2L NC no S/S of distress/SOB or pain. Left upper arm midline is completely out. No bruising/ swelling and or bleeding noted. Bed at lowest locked position, side rails up x2 and call light within reach. Bed alarm on .Instructed on POC and to call for assist PRN, will continue to monitor for changes Q1hr and PRN. Sitter at bedside.
[2019-01-14 07:47] LABS: BUN/Creatinine Ratio 21.1; Calcium 9.1 mg/dL (8.5-10.1)
[2019-01-14 08:00] VITALS: BP_SYST 136
[2019-01-14] MEDS ORDERED: HYDROcodone-ACET 5/325MG TAB PO PRN (12:00)
--- NOTE | 2019-01-14 12:30 | NUR ---
IV came out. Per PROPERTY UNDERWRITER IV cam completely out, catheter fully intact. Pressure dressing applied to site. Patient tolerated well. Sitter at bedside.
[2019-01-14] MEDS: cefTRIAXone 1GM/50ML D5W 50 ML IV SCH (13:58)
[2019-01-14] MEDS: AZITHROMYCIN 500MG/ 250ML 250 ML IV SCH (13:58)
[2019-01-14] MEDS: FAMOTIDINE 20 MG TAB PO SCH (13:59)
[2019-01-14] MEDS: GABAPENTIN 300 MG CAP PO SCH ×2 (13:59→20:47)
[2019-01-14] MEDS: VENLAFAXINE HCL 37.5mg XR cap PO SCH (13:59)
--- NOTE | 2019-01-14 15:00 | NUR ---
Attempted IV access x3. No access obtained.
--- NOTE | 2019-01-14 15:17 | NUR ---
Nutrition Assessment Notes please see attached link for complete assessment Est. Needs BW 64 [id number] kcal (25-30 kcal/kgBW), 64-76 gms pro (1.0-1.2 gms/kgBW). Will continue to monitor pertinent labs and reassess nutrient need prn Addendum: 01/14/19 at [address] Amended: Links added.
--- NOTE | 2019-01-14 16:50 | NUR ---
IV ACCESS DONG MICHAELS OBTAINED IV ACCESS AFTER 2 ATTEMPTS. IV ACCESS TO RIGHT FOREARM, 22GAUGE. PATIENT TOLERATED WELL. SITTER AT BEDSIDE.
--- NOTE | 2019-01-14 19:06 | NUR ---
CLOSING NOTE PATIENT IS COMFORTABLY RESTING IN BED,ON RA, NO S/S OF DISTRESS/SOB. BED AT LOWEST LOCKED POSITION, BED SIDE RAILS UP X2 AND CALL LIGHT WITHIN REACH. WILL ENDORSE CARE TO NOC RN. SITTER AT BEDSIDE
[2019-01-14 20:00] VITALS: BP 137/72
[2019-01-15 05:00] VITALS: BP 128/77
[2019-01-15] MEDS: IPRATROPIUM BROM 0.5 MG/2.5ML INH SOL NEB SCH ×2 (06:12→11:50)
[2019-01-15] MEDS: ALBUTEROL SULF 2.5 MG/0.5ML(0.5%) NEB SOLN NEB SCH ×2 (06:12→11:50)
[2019-01-15] MEDS: LEVOTHYROXINE SODIUM 50 MCG TAB PO SCH (06:24)
--- NOTE | 2019-01-15 07:22 | NUR ---
OPENING NOTE Patient is A&O X's 3 on room air with no s/s of respiratory distress noted. Educated patient on POC and to use call light when in need of assistance. Will continue to monitor for changes and round hourly/PRN.Sitter is present.
[2019-01-15 08:00] VITALS: BP 138/88
[2019-01-15] MEDS: cefTRIAXone 1GM/50ML D5W 50 ML IV SCH (09:00)
--- NOTE | 2019-01-15 09:00 | NUR ---
Patient's daughter Lizeth at bedside.
[2019-01-15] MEDS ORDERED: AZIT250T8 PO (09:34)
[2019-01-15] MEDS ORDERED: AMOX500T86 PO (09:42)
[2019-01-15] MEDS: AZITHROMYCIN 500MG/ 250ML 250 ML IV SCH (10:00)
[2019-01-15] MEDS: VENLAFAXINE HCL 37.5mg XR cap PO SCH (10:00)
[2019-01-15] MEDS: GABAPENTIN 300 MG CAP PO SCH (10:00)
[2019-01-15] MEDS: FAMOTIDINE 20 MG TAB PO SCH (10:00)
[2019-01-15 11:14] VITALS: BP 139/88
--- NOTE | 2019-01-15 11:20 | NUR ---
Discharge instructions given as ordered. Encourage to follow up with PMD as instructed. All questions and concerns addressed. Patient verbalized understanding. Medication reconciliation form completed and copy given to patient. IV removed with catheter intact, pressure dressing applied. Patient taken to vehicle via wheelchair with all personal belongings, accompanied by staff and Lizeth, daughter . No distress noted at time of departure.
== END 2019-01-15 11:15 | disposition home or self-care (01) | DRG 871 ==
LOC: EDBD 09:56 → ER 09:56 → TELE 09:57 → TELE-WESTW 01-13 03:44 → WEST WING 01-13 11:01
PROVIDERS: ADMIT Nurse Practitioner Acute Care; ATTEND Internal Medicine
DX: A41.9 Sepsis, unspecified organism (principal); J96.00 Acute respiratory failure, unspecified whether with hypoxia or hypercapnia; J18.1 Lobar pneumonia, unspecified organism; N17.0 Acute kidney failure with tubular necrosis; R65.21 Severe sepsis with septic shock; E87.0 Hyperosmolality and hypernatremia; J44.0 Chronic obstructive pulmonary disease with (acute) lower respiratory infection
CPT/HCPCS: 36415; 51702; 70450; 71045; 71046; 76775; 80048; 80053; 81001; 83605; 83735; 83880; 83930; 83935; 84300; 84484; 85025; 85610; 85730; 87040; 93005; 94640; 94761; 96365; 96366; 96368; 96375; G0378; J0696; J2405; J3490

== ENCOUNTER 2019-02-06 08:21 | Emergency (ER) | payer MEDICARE, OTHER ==
[~2019-02-06] VITALS: Ht 160 cm; Wt 65.8 kg
[~2019-02-06 08:21] MED LIST changes: +AMOX500T86 PO; +AZIT250T8 PO
[2019-02-06 09:46] LABS: Basophils # (auto) 0.1 uL; Basophils % (auto) 0.7 % (0.0-2.0); Eosinophils # (auto) 0 uL; Eosinophils % (auto) 0.4 % (0.0-7.0); Hematocrit 41.7 % (36.0-46.0); Hemoglobin 13.8 g/dL (12.2-16.2); Lymphocytes # (auto) 1.1 uL; Lymphocytes % (auto) 10.7 % (10.0-50.0); Mean Corpuscular Hemoglobin 28.3 pg (28.0-32.0); Mean Corpuscular Hgb Conc. 33.1 g/dL (32.0-36.0); Mean Corpuscular Volume 85.6 fL (80.0-100.0); Monocytes # (auto) 0.7 uL; Monocytes % (auto) 6.9 % (0.0-12.0); Neutrophils # (auto) 8.4 uL; Neutrophils % (auto) 81.3 % (37.0-80.0); Platelet Count (auto) 267 10^3/uL (140-450); Red Blood Cells 4.87 10^6/uL (4.0-5.20); Red Cell Distribution Width 15.1 % (11.8-14.3); White Blood Cell 10.4 10^3/uL (4.4-10.8)
[2019-02-06 10:06] LABS: Alanine Aminotransferase 18 U/L (13-56); Albumin 3.7 g/dL (3.4-5.0); Amylase 51 U/L (25-115); Anion Gap 9 (5-15); Blood Urea Nitrogen 17 mg/dL (7-18); Calcium 8.6 mg/dL (8.5-10.1); Carbon Dioxide 23 mmol/L (21-32); Chloride 106 mmol/L (98-107); Glucose 107 mg/dL (74-106); Lipase 387 U/L (73-393); Potassium 4.1 mmol/L (3.5-5.1); Sodium 138 mmol/L (136-145)
[2019-02-06 10:11] LABS: Alkaline Phosphatase 111 U/L (45-117); Aspartate Aminotransferase 24 U/L (15-37); Bilirubin, Total 0.9 mg/dL (0.2-1.0); GFR African American 68 mL/min; GFR Non-African American 56 mL/min; Total Protein 8.1 g/dL (6.4-8.2)
[2019-02-06 10:57] LABS: Urine Bacteria NONE SEEN /hpf (None Seen); Urine Blood 1+ /uL (Negative); Urine Specific Gravity 1.023 (1.001-1.035); Urine WBC 1 /hpf (0 - 5)
[2019-02-06] MEDS ORDERED: SODIUM CHLORIDE 0.9% 500 ML IVB ONE (16:36)
[2019-02-06] MEDS ORDERED: SODIUM CHLORIDE 0.9% 1,000 ML IV ONE (16:36)
[2019-02-06] MEDS ORDERED: PROMETHAZINE HCL 25 MG/ML 1ML IV PRN (16:45)
[2019-02-06] MEDS ORDERED: KETOROLAC TROMETH 30 MG/ML 1ML VIAL IV ONE (16:45)
[2019-02-06 18:09] VITALS: BP 127/56
== END 2019-02-06 19:59 | disposition home or self-care (01) ==
LOC: ER 08:21
DX: N39.0 Urinary tract infection, site not specified (principal); F32.9 Major depressive disorder, single episode, unspecified; F41.9 Anxiety disorder, unspecified; K43.9 Ventral hernia without obstruction or gangrene; E78.5 Hyperlipidemia, unspecified; Z98.61 Coronary angioplasty status; Z90.710 Acquired absence of both cervix and uterus
CPT/HCPCS: 36415; 74176; 80053; 81001; 82150; 83690; 83735; 84443; 84484; 85025; 93005; 96361; 96374; 99284; J1885; J2550; J7030

== ENCOUNTER 2019-02-11 10:03 | Emergency (ER) | payer OTHER ==
[~2019-02-11] VITALS: Ht 154.9 cm; Wt 54.4 kg
[2019-02-11 11:28] LABS: Basophils # (auto) 0 uL; Basophils % (auto) 0.7 % (0.0-2.0); Eosinophils # (auto) 0.2 uL; Eosinophils % (auto) 2.1 % (0.0-7.0); Hematocrit 35.6 % (36.0-46.0); Hemoglobin 11.8 g/dL (12.2-16.2); Lymphocytes # (auto) 0.9 uL; Lymphocytes % (auto) 11.7 % (10.0-50.0); Mean Corpuscular Hemoglobin 28.2 pg (28.0-32.0); Mean Corpuscular Hgb Conc. 33.2 g/dL (32.0-36.0); Mean Corpuscular Volume 84.9 fL (80.0-100.0); Monocytes # (auto) 0.7 uL; Monocytes % (auto) 9.2 % (0.0-12.0); Neutrophils # (auto) 5.7 uL; Neutrophils % (auto) 76.3 % (37.0-80.0); Platelet Count (auto) 238 10^3/uL (140-450); Red Blood Cells 4.19 10^6/uL (4.0-5.20); Red Cell Distribution Width 14.5 % (11.8-14.3); White Blood Cell 7.4 10^3/uL (4.4-10.8)
[2019-02-11 11:47] LABS: INR < 0.93 (0.9-1.15); Partial Thromboplastin Time 25.2 sec (23.64-32.05)
[2019-02-11 11:52] LABS: Alanine Aminotransferase 17 U/L (13-56); Albumin 2.9 g/dL (3.4-5.0); Anion Gap 7 (5-15); Aspartate Aminotransferase 22 U/L (15-37); Blood Urea Nitrogen 15 mg/dL (7-18); Calcium 8.1 mg/dL (8.5-10.1); Carbon Dioxide 23 mmol/L (21-32); Chloride 109 mmol/L (98-107); GFR African American 68 mL/min; GFR Non-African American 56 mL/min; Glucose 94 mg/dL (74-106); Potassium 4.3 mmol/L (3.5-5.1); Sodium 139 mmol/L (136-145)
[2019-02-11 11:56] LABS: Alkaline Phosphatase 98 U/L (45-117); Bilirubin, Total 0.4 mg/dL (0.2-1.0)
[2019-02-11] MEDS ORDERED: HYDROcodone-ACET 5/325MG TAB PO ONE (14:45)
[2019-02-11 18:01] VITALS: BP 91/49
== END 2019-02-11 16:59 | disposition home or self-care (01) ==
LOC: ER 10:03 → EDBD 10:03 → ER 16:59
DX: S09.90XA Unspecified injury of head, initial encounter (principal); N39.0 Urinary tract infection, site not specified; E78.5 Hyperlipidemia, unspecified; Z86.73 Personal history of transient ischemic attack (TIA), and cerebral infarction without residual deficits; Z90.710 Acquired absence of both cervix and uterus; Z98.61 Coronary angioplasty status; W22.8XXA Striking against or struck by other objects, initial encounter; Y93.89 Activity, other specified; Y99.8 Other external cause status; Y92.89 Other specified places as the place of occurrence of the external cause
CPT/HCPCS: 36415; 70450; 72192; 80053; 83605; 84484; 85025; 85610; 85730; 87040; 93005; 94761; 99284; J7030

== ENCOUNTER 2019-06-01 21:45 | Emergency (ER) | payer OTHER ==
[~2019-06-01] VITALS: Ht 160 cm; Wt 65.3 kg
[~2019-06-01 21:45] MED LIST changes: -QUET200T3 PO; +QUET200T4 PO
[2019-06-02 00:55] VITALS: BP 114/61
[2019-06-02] MEDS ORDERED: traMADol HCL 50 MG TAB ONE (01:26)
[2019-06-02] MEDS ORDERED: traMADol HCL 50 MG TAB PO ONE (01:30)
== END 2019-06-02 01:43 | disposition home or self-care (01) ==
LOC: EDBD 21:45 → EDUNIT# 21:50 → ER 21:50
DX: S01.01XA Laceration without foreign body of scalp, initial encounter (principal); I10 Essential (primary) hypertension; Z98.61 Coronary angioplasty status; W01.0XXA Fall on same level from slipping, tripping and stumbling without subsequent striking against object, initial encounter; Y93.89 Activity, other specified; Y99.8 Other external cause status; Y92.89 Other specified places as the place of occurrence of the external cause
CPT/HCPCS: 12002; 70450; 72125; 93005

== ENCOUNTER → 2020-02-06 | Emergency (ER) | payer OTHER ==
[~2020-02-06] VITALS: Ht 157.5 cm; Wt 61.2 kg
[~2020-02-06] MED LIST changes: +LIDOCAINE 1% HCL (LOCAL ANESTH.) INJ 20ML MDV ID ONE; +LIDOCAINE 1% HCL (LOCAL ANESTH.) INJ 20ML MDV ONE; +LIDOCAINE W/ EPINEPHRINE 2% INJ 20ML VIAL ID ONE
[2020-02-06 20:17] LABS: Basophils # (auto) 0 10 ^3/uL (0-0.2); Basophils % (auto) 0.6 % (0.0-2.0); Eosinophils % (auto) 2.2 % (0.0-7.0); Lymphocytes # (auto) 1.3 10 ^3/uL (0.4-5.4); Monocytes # (auto) 0.7 10 ^3/uL (0-1.3); Red Cell Distribution Width 16.2 % (11.8-14.3)
[2020-02-06 20:19] LABS: Eosinophils # (auto) 0.1 10 ^3/uL (0-0.8); Hematocrit 37.3 % (36.0-46.0); Hemoglobin 12.1 g/dL (12.2-16.2); Lymphocytes % (auto) 19.9 % (10.0-50.0); Mean Corpuscular Hemoglobin 26.5 pg (28.0-32.0); Mean Corpuscular Hgb Conc. 32.4 g/dL (32.0-36.0); Mean Corpuscular Volume 81.8 fL (80.0-100.0); Monocytes % (auto) 10.4 % (0.0-12.0); Neutrophils # (auto) 4.5 10 ^3/uL (1.6-8.6); Neutrophils % (auto) 66.9 % (37.0-80.0); Platelet Count (auto) 274 10^3/uL (140-450); Red Blood Cells 4.56 10^6/uL (4.0-5.20); White Blood Cell 6.7 10^3/uL (4.4-10.8)
[2020-02-06 20:33] LABS: Alanine Aminotransferase 19 U/L (13-56); Albumin 3.3 g/dL (3.4-5.0); Anion Gap 6 (5-15); Aspartate Aminotransferase 15 U/L (15-37); BUN/Creatinine Ratio 16.9; Blood Urea Nitrogen 22 mg/dL (7-18); Calcium 8.5 mg/dL (8.5-10.1); Carbon Dioxide 25 mmol/L (21-32); Chloride 107 mmol/L (98-107); GFR African American 50 mL/min; GFR Non-African American 41 mL/min; Glucose 106 mg/dL (74-106); Potassium 4.1 mmol/L (3.5-5.1); Sodium 138 mmol/L (136-145)
[2020-02-06 20:38] LABS: INR 0.97 (0.9-1.15); Partial Thromboplastin Time 24.2 sec (23.0-31.2)
[2020-02-06 20:40] LABS: Alkaline Phosphatase 112 U/L (45-117); Bilirubin, Total 0.4 mg/dL (0.2-1.0)
[2020-02-06 23:32] LABS: Urine Bacteria FEW /hpf (None Seen); Urine Blood Negative /uL (Negative); Urine Mucus FEW (None Seen); Urine Specific Gravity 1.007 (1.001-1.035); Urine WBC 1 /hpf (0 - 5)
[2020-02-07 01:30] VITALS: BP 120/59
== END | disposition home or self-care (01) ==
LOC: ER 19:25
DX: S01.312A Laceration without foreign body of left ear, initial encounter (principal); I10 Essential (primary) hypertension; I25.10 Atherosclerotic heart disease of native coronary artery without angina pectoris; W07.XXXA Fall from chair, initial encounter; Y93.89 Activity, other specified; Y92.89 Other specified places as the place of occurrence of the external cause; Y99.8 Other external cause status
CPT/HCPCS: 12011; 36415; 70450; 73030; 80053; 81001; 84484; 85025; 85610; 85730; 93005; 99285; J2001

== ENCOUNTER 2020-03-04 14:58 | Inpatient (IN) | payer OTHER ==
[~2020-03-04] VITALS: Ht 167.6 cm; Wt 97.9 kg
[~2020-03-04 14:58] MED LIST changes: -LIDOCAINE 1% HCL (LOCAL ANESTH.) INJ 20ML MDV ID ONE; -LIDOCAINE 1% HCL (LOCAL ANESTH.) INJ 20ML MDV ONE; -LIDOCAINE W/ EPINEPHRINE 2% INJ 20ML VIAL ID ONE
[2020-03-04 16:06] LABS: Basophils # (auto) 0 10 ^3/uL (0-0.2); Basophils % (auto) 0.5 % (0.0-2.0); Eosinophils # (auto) 0 10 ^3/uL (0-0.8); Eosinophils % (auto) 0.8 % (0.0-7.0); Hematocrit 35.4 % (36.0-46.0); Hemoglobin 11.5 g/dL (12.2-16.2); Lymphocytes # (auto) 1.1 10 ^3/uL (0.4-5.4); Lymphocytes % (auto) 19.5 % (10.0-50.0); Mean Corpuscular Hemoglobin 27.2 pg (28.0-32.0); Mean Corpuscular Hgb Conc. 32.6 g/dL (32.0-36.0); Mean Corpuscular Volume 83.4 fL (80.0-100.0); Monocytes # (auto) 0.5 10 ^3/uL (0-1.3); Monocytes % (auto) 7.9 % (0.0-12.0); Neutrophils # (auto) 4.1 10 ^3/uL (1.6-8.6); Neutrophils % (auto) 71.3 % (37.0-80.0); Nucleated Red Blood Cells % 0.1 %; Platelet Count (auto) 206 10^3/uL (140-450); Red Blood Cells 4.25 10^6/uL (4.0-5.20); Red Cell Distribution Width 16.3 % (11.8-14.3); White Blood Cell 5.7 10^3/uL (4.4-10.8)
[2020-03-04 16:20] LABS: Albumin 2.9 g/dL (3.4-5.0); Anion Gap 4 (5-15); Blood Alcohol < 3.0 mg/dL (0-5); Blood Urea Nitrogen 15 mg/dL (7-18); Calcium 7.7 mg/dL (8.5-10.1); Carbon Dioxide 24 mmol/L (21-32); Chloride 113 mmol/L (98-107); Glucose 75 mg/dL (74-106); Potassium 4.1 mmol/L (3.5-5.1); Sodium 141 mmol/L (136-145)
[2020-03-04 16:26] LABS: Alanine Aminotransferase 28 U/L (13-56); Alkaline Phosphatase 91 U/L (45-117); Aspartate Aminotransferase 20 U/L (15-37); BUN/Creatinine Ratio 17.2; Bilirubin, Total 0.6 mg/dL (0.2-1.0); GFR African American 79 mL/min; GFR Non-African American 66 mL/min; Total Protein 5.7 g/dL (6.4-8.2)
[2020-03-04] MEDS ORDERED: SODIUM CHLORIDE 0.9% 1,000 ML IVB ONE (16:30)
[2020-03-04 16:58] LABS: INR 1.03 (0.9-1.15); Partial Thromboplastin Time 24.2 sec (23.0-31.2)
[2020-03-04 17:14] LABS: Urine Bacteria FEW /hpf (None Seen); Urine Blood Negative /uL (Negative); Urine Mucus FEW (None Seen); Urine Specific Gravity 1.016 (1.001-1.035); Urine WBC 1 /hpf (0 - 5)
[2020-03-04] MEDS ORDERED: NITROGLYCERIN 0.4 MG SL TAB SL PRN (19:00)
[2020-03-04] MEDS ORDERED: MORPHINE SULF INJ 2 MG/ML SYRINGE 1ML IV PRN ×2 (19:00→19:15)
[2020-03-04] MEDS ORDERED: ACETAMINOPHEN 500 MG TAB PO PRN (19:15)
[2020-03-04] MEDS ORDERED: traMADol HCL 50 MG TAB PO PRN (19:15)
[2020-03-04] MEDS ORDERED: ONDANSETRON HCL 4 MG/2 ML VIAL IV PRN (19:15)
--- NOTE | 2020-03-04 19:46 | NUR ---
Telemetry admit from ER EPIFANIO MAYS admitted to Telemetry unit. Patient oriented to primary RN, unit, room, bed, and unit policies regarding patient care and visiting hours. Patient now on continuous telemetry monitoring, tele box #50 and telemetry reading on arrival to unit is SR 80 bpm. Patient weighed by bedscale and encouraged to call if they need something. Fall and safety precautions in place. Call light within reach and able to use. All questions and concerns addressed, patient verbalized understanding and in agreement. Will continue to monitor q1h and prn.
[2020-03-04] MEDS: SODIUM CHLORIDE 0.9% 1,000 ML IV SCH (20:09)
[2020-03-04] MEDS: ENOXAPARIN SOD 40 MG/0.4 ML SYRINGE SC SCH (20:10)
--- NOTE | 2020-03-04 20:10 | NUR ---
late social media marketing specialist patient arrived to floor and did not receive scheduled daily medication due at 1800. for this reason, daily medication administered at this time (see emar).
[2020-03-04] MEDS: ATORVASTATIN 20 MG TAB PO SCH (21:06)
[2020-03-04 21:50] VITALS: BP 133/70
--- NOTE | 2020-03-04 21:50 | NUR ---
LAST BM UNKNOWN PATIENT STATES SHE DOES NOT KNOW WHEN SHE HAD A BOWEL MOVEMENT LAST. PATIENT ESTIMATES IT MIGHT BE A WEEK. PATIENT HAS NO PRN'S FOR CONSTIPATION. ON-CALL HOSP PAGED. AWAITING CALL BACK. WILL CONTINUE TO MONITOR.
[2020-03-04 21:52] VITALS: BP 133/70
[2020-03-04] MEDS ORDERED: ROPI0.5T18 PO (22:13)
[2020-03-04] MEDS ORDERED: VENL75CA3 PO (22:13)
[2020-03-04] MEDS ORDERED: ATOR40TA52 PO (22:13)
[2020-03-04] MEDS ORDERED: QUET200T44 PO (22:13)
[2020-03-04] MEDS ORDERED: LEVO50TA7 PO (22:13)
--- NOTE | 2020-03-04 22:45 | NUR ---
ON-CALL HOSP PAGED BACK RECEIVED A CALL BACK FROM ON-CALL HOSP AT THIS TIME. NOTIFIED MOTOR COACH SUPERVISOR OF PATIENT STATUS. NO ORDER RECEIVED, READ BACK AND VERIFIED (SEE NEW ORDERS). WILL CONTINUE TO MONITOR.
--- NOTE | 2020-03-05 02:11 | NUR ---
CARE ENDORSED PATIENT RESTING IN BED WITH NO S/S OF DISTRESS/SOB. FALL AND SAFETY PRECAUTIONS REMAIN INTACT. REPORT GIVEN AND CARE ENDORSED TO NEW PRIMARY RN.
[2020-03-05 05:15] VITALS: BP 109/59
[2020-03-05] MEDS: SODIUM CHLORIDE 0.9% 1,000 ML IV SCH ×2 (07:19→21:55)
[2020-03-05 08:12] LABS: Alanine Aminotransferase 25 U/L (13-56); Albumin 2.8 g/dL (3.4-5.0); Anion Gap 2 (5-15); Blood Urea Nitrogen 15 mg/dL (7-18); Calcium 7.7 mg/dL (8.5-10.1); Carbon Dioxide 25 mmol/L (21-32); Chloride 116 mmol/L (98-107); Glucose 74 mg/dL (74-106); Potassium 4.1 mmol/L (3.5-5.1); Sodium 143 mmol/L (136-145)
[2020-03-05 08:17] LABS: Alkaline Phosphatase 87 U/L (45-117); Aspartate Aminotransferase 18 U/L (15-37); BUN/Creatinine Ratio 18.8; Bilirubin, Total 0.5 mg/dL (0.2-1.0); GFR African American 87 mL/min; GFR Non-African American 72 mL/min; Total Protein 5.5 g/dL (6.4-8.2)
[2020-03-05 09:00] VITALS: BP 106/49
[2020-03-05] MEDS: ASPirin 81 mg TAB PO SCH (09:48)
[2020-03-05] MEDS: DOCUSATE SOD 100 MG CAP PO SCH ×2 (09:49→21:12)
[2020-03-05] MEDS ORDERED: NITROGLYCERIN 0.2MG/HR TOPICAL PATCH TD SCH (10:00)
--- NOTE | 2020-03-05 11:37 | NUR ---
PUGA CATHETER DISCONTINUED. 300ML OUT.
[2020-03-05 11:59] VITALS: BP 112/62
[2020-03-05 17:00] VITALS: BP_SYST 134; BP_SYST 137; BP_DIAS 71
[2020-03-05] MEDS: ENOXAPARIN SOD 40 MG/0.4 ML SYRINGE SC SCH (18:13)
--- NOTE | 2020-03-05 19:24 | NUR ---
[facility] UNIT SEC. CALLED CONSULT TO DR. DONALD. NO RECORD OF CONSULT BEING CALLED IN PREVIOUS DOCUMENTATION.
--- NOTE | 2020-03-05 19:40 | NUR ---
Opening Shift Note Assumed care of patient, awake and alert. Fall and safety precautions in place. Call light within reach and able to use. No S/S of distress/SOB/pain. Instructed on POC and to call for assist PRN, patient verbalized understanding and in agreement. Will continue to monitor for changes Q1hr and PRN.
[2020-03-05] MEDS: ATORVASTATIN 20 MG TAB PO SCH (21:12)
[2020-03-05 22:00] VITALS: BP 97/54
[2020-03-06] MEDS: SODIUM CHLORIDE 0.9% 1,000 ML IV SCH (04:43)
[2020-03-06 05:00] VITALS: BP 137/75
--- NOTE | 2020-03-06 05:00 | NUR ---
MRSA MRSA SWAB OBTAINED AND SENT TO LAB. WILL CONTINUE TO MONITOR.
--- NOTE | 2020-03-06 07:05 | NUR ---
OPENING SHIFT NOTE Assumed care of patient from overnight babysitter RN. Patient is alert and oriented x4, no signs of distress noted, patient denies pain. She was updated on the plan of care and verbalized understanding. Bed is locked, in the lowest position, side rails up x2 and call light is in reach. She was encouraged to call for assistance as needed.
--- NOTE | 2020-03-06 08:02 | NUR ---
CALLED FAMILY after verification of password, patient's daughter Lizeth was updated on the patient status and plan of care and verbalized understanding. All questions answered.
--- NOTE | 2020-03-06 08:12 | NUR ---
PATIENT TAKEN TO STRESS TEST Accompanied by tech. no signs of distress noted on departure.
[2020-03-06] MEDS ORDERED: ADENOSINE 82 MG in GIVE UN-DILUTED 0 ML IV STA (08:17)
[2020-03-06 08:44] VITALS: BP 141/95
--- NOTE | 2020-03-06 09:30 | NUR ---
PATIENT BACK FROM STRESS TEST No signs of distress, patient resting comfortably.
[2020-03-06 10:02] VITALS: BP 136/101
[2020-03-06] MEDS: ASPirin 81 mg TAB PO SCH (10:07)
[2020-03-06] MEDS: DOCUSATE SOD 100 MG CAP PO SCH (10:07)
[2020-03-06 12:26] VITALS: BP 131/65
--- NOTE | 2020-03-06 13:04 | NUR ---
JACKELYN AT BEDSIDE Updated on the patient status, Plan of care discussed with the patient and she verbalized understanding. No new orders received.
[2020-03-06] MEDS ORDERED: ASPI81CH43 PO (15:22)
--- NOTE | 2020-03-06 16:00 | NUR ---
CALLED ODILON for results of stress test, stress test was negative.
[2020-03-06 17:26] VITALS: BP 106/49
[2020-03-06] MEDS: ENOXAPARIN SOD 40 MG/0.4 ML SYRINGE SC SCH ×2 (17:41→18:00)
--- NOTE | 2020-03-06 18:18 | NUR ---
DISCHARGE Discharge instructions given as ordered. Encourage to follow up with PMD as instructed. All questions and concerns addressed. Patient verbalized understanding. Medication reconciliation form completed and copy given to patient. Home medications held in Pharmacy returned to patient, IV removed with catheter intact, pressure dressing applied, Telemetry unit returned to ICU. Patient taken to vehicle via wheelchair with all personal belongings, accompanied by staff. No distress noted at time of departure.
== END 2020-03-06 18:16 | disposition home or self-care (01) | DRG 71 ==
LOC: EDBD 14:58 → ER 14:58 → MERGE 14:59 → TELE 14:59 → TELE-WESTW 21:12
PROVIDERS: ADMIT Internal Medicine; ATTEND Internal Medicine
DX: G93.41 Metabolic encephalopathy (principal); I25.110 Atherosclerotic heart disease of native coronary artery with unstable angina pectoris; R07.9 Chest pain, unspecified; I10 Essential (primary) hypertension; F32.9 Major depressive disorder, single episode, unspecified; E78.5 Hyperlipidemia, unspecified; E03.9 Hypothyroidism, unspecified; G47.00 Insomnia, unspecified; E86.0 Dehydration; I95.89 Other hypotension; E78.00 Pure hypercholesterolemia, unspecified; Z95.818 Presence of other cardiac implants and grafts; Z79.899 Other long term (current) drug therapy; Z79.891 Long term (current) use of opiate analgesic; Z79.01 Long term (current) use of anticoagulants
CPT/HCPCS: 36415; 70450; 71045; 78452; 80053; 80320; 81001; 82550; 83605; 83735; 84443; 84484; 85025; 85379; 85610; 85652; 85730; 86141; 87040; 87077; 87081; 87186; 93005; 93017; 96360; G0378; J0153

== ENCOUNTER 2020-04-20 15:48 | Inpatient (IN) | payer OTHER ==
[~2020-04-20] VITALS: Ht 154.9 cm; Wt 57.2 kg
[~2020-04-20 15:48] MED LIST changes: +ASPI81CH43 PO; +ATOR40TA52 PO; +QUET200T44 PO; +ROPI0.5T18 PO; +VENL75CA3 PO
[2020-04-20] MEDS ORDERED: methylPREDNISolone SOD SUCC 125 MG/2 ML VL IV ONE (16:15)
[2020-04-20] MEDS ORDERED: AZITHROMYCIN 500MG/ 250ML 250 ML IV ONE (16:15)
[2020-04-20] MEDS ORDERED: ACETAMINOPHEN 325 MG TAB PO ONE (17:00)
[2020-04-20 17:48] LABS: Basophils # (auto) 0 10 ^3/uL (0-0.2); Basophils % (auto) 0.3 % (0.0-2.0); Eosinophils # (auto) 0 10 ^3/uL (0-0.8); Eosinophils % (auto) 0.2 % (0.0-7.0); Hematocrit 40.9 % (36.0-46.0); Hemoglobin 13.5 g/dL (12.2-16.2); Lymphocytes # (auto) 0.8 10 ^3/uL (0.4-5.4); Lymphocytes % (auto) 11.2 % (10.0-50.0); Mean Corpuscular Hemoglobin 28.2 pg (28.0-32.0); Mean Corpuscular Hgb Conc. 33.1 g/dL (32.0-36.0); Mean Corpuscular Volume 85.1 fL (80.0-100.0); Monocytes # (auto) 0.4 10 ^3/uL (0-1.3); Monocytes % (auto) 5.3 % (0.0-12.0); Neutrophils # (auto) 5.8 10 ^3/uL (1.6-8.6); Platelet Count (auto) 239 10^3/uL (140-450); Red Cell Distribution Width 16.8 % (11.8-14.3)
[2020-04-20 18:09] LABS: Alanine Aminotransferase 25 U/L (13-56); Albumin 3.6 g/dL (3.4-5.0); Anion Gap 7 (5-15); BUN/Creatinine Ratio 15.1; Blood Urea Nitrogen 16 mg/dL (7-18); Calcium 8.6 mg/dL (8.5-10.1); Carbon Dioxide 25 mmol/L (21-32); Chloride 103 mmol/L (98-107); GFR African American 63 mL/min; GFR Non-African American 52 mL/min; Glucose 100 mg/dL (74-106); Sodium 135 mmol/L (136-145)
[2020-04-20 18:10] LABS: Lactic Acid w/Reflex 2.1 mmol/L (0.4-2.0)
[2020-04-20] MEDS ORDERED: MORPHINE SULF INJ 2 MG/ML SYRINGE 1ML IV PRN (18:45)
[2020-04-20] MEDS ORDERED: SODIUM CHLORIDE 0.9% 1,000 ML IV SCH (18:45)
[2020-04-20] MEDS ORDERED: NITROGLYCERIN 0.4 MG SL TAB SL PRN (18:45)
[2020-04-20 19:32] LABS: Alkaline Phosphatase 106 U/L (45-117); Aspartate Aminotransferase 40 U/L (15-37); Bilirubin, Total 0.5 mg/dL (0.2-1.0); Total Protein 8.1 g/dL (6.4-8.2)
[2020-04-20] MEDS ORDERED: DOXYCYCLINE 100 MG TAB/CAP PO SCH (22:00)
[2020-04-20] MEDS: ALBUTEROL SULF HFA 90MCG INH 200DOSE IN SCH (22:25)
[2020-04-20] MEDS: BUDESONIDE (INHALATION) 180 MCG IH IN SCH (22:25)
[2020-04-20] MEDS: DOXYCYCLINE 100MG/250ML 250 ML IV SCH (22:59)
[2020-04-20 23:10] VITALS: BP 100/46
[2020-04-21] MEDS: ALBUTEROL SULF HFA 90MCG INH 200DOSE IN SCH ×3 (06:19→22:22)
[2020-04-21] MEDS: BUDESONIDE (INHALATION) 180 MCG IH IN SCH ×2 (06:19→22:22)
[2020-04-21] MEDS ORDERED: CHOLECALCIFEROL (VITD3) 2,000 UNIT CAP PO SCH (10:00)
[2020-04-21] MEDS ORDERED: ENOXAPARIN SOD 30 MG/0.3 ML SYRINGE SC SCH (10:00)
[2020-04-21 10:27] LABS: Basophils # (auto) 0 10 ^3/uL (0-0.2); Basophils % (auto) 0.2 % (0.0-2.0); Eosinophils # (auto) 0 10 ^3/uL (0-0.8); Hematocrit 36.7 % (36.0-46.0); Hemoglobin 11.9 g/dL (12.2-16.2); Lymphocytes # (auto) 0.6 10 ^3/uL (0.4-5.4); Lymphocytes % (auto) 7.5 % (10.0-50.0); Mean Corpuscular Hemoglobin 27.9 pg (28.0-32.0); Mean Corpuscular Hgb Conc. 32.4 g/dL (32.0-36.0); Mean Corpuscular Volume 85.9 fL (80.0-100.0); Monocytes # (auto) 0.4 10 ^3/uL (0-1.3); Monocytes % (auto) 5.9 % (0.0-12.0); Neutrophils # (auto) 6.5 10 ^3/uL (1.6-8.6); Neutrophils % (auto) 86.4 % (37.0-80.0); Platelet Count (auto) 206 10^3/uL (140-450); Red Blood Cells 4.27 10^6/uL (4.0-5.20); Red Cell Distribution Width 16.4 % (11.8-14.3); White Blood Cell 7.5 10^3/uL (4.4-10.8)
[2020-04-21 10:49] LABS: Albumin 2.8 g/dL (3.4-5.0); Calcium 8.4 mg/dL (8.5-10.1); Potassium 4.1 mmol/L (3.5-5.1)
[2020-04-21 10:57] LABS: BUN/Creatinine Ratio 18.4; Bilirubin, Total 0.3 mg/dL (0.2-1.0); CRP High Sensitivity 6.95 mg/dL (< 0.3); Total Protein 6.7 g/dL (6.4-8.2)
[2020-04-21] MEDS: DexAMETHasone SOD PHOS 10MG/1ML VIAL INJ IV SCH (11:38)
[2020-04-21] MEDS: cefTRIAXone 1GM/50ML D5W 50 ML IV SCH (11:38)
[2020-04-21] MEDS: ZINC SULFATE 220mg CAP or TAB PO SCH (11:39)
[2020-04-21] MEDS: DOXYCYCLINE 100MG/250ML 250 ML IV SCH ×2 (11:39→23:17)
[2020-04-21] MEDS: ASCORBIC ACID 1,000 MG TAB PO SCH (11:39)
[2020-04-21] MEDS: ENOXAPARIN SOD 30 MG/0.3 ML SYRINGE SC SCH ×2 (11:40→23:18)
[2020-04-21 12:00] VITALS: BP 119/74
[2020-04-21] MEDS ORDERED: CLOP75TA41 PO (12:51)
[2020-04-21] MEDS ORDERED: LEVO75TA6 PO (12:51)
[2020-04-21 16:47] VITALS: BP 118/67
[2020-04-21] MEDS: ERGOCALCIFEROL 50,000 UNIT(1.25MG) CAP PO SCH (17:32)
--- NOTE | 2020-04-21 19:25 | NUR ---
Opening Shift Note Received report from carisa Liu RN. Assumed care of patient, awake and alert. No S/S of distress/SOB or pain. On 2LNC saturating at 94%. Instructed on POC and to call for assist PRN, will continue to monitor for changes Q1hr and PRN. Bed placed in lowest position, bed alarm turned on and call light within reach.
[2020-04-21] MEDS: CHOLECALCIFEROL (VITD3) 2,000 UNIT CAP PO SCH (19:26)
[2020-04-21 20:00] VITALS: BP 124/64
[2020-04-21 21:00] VITALS: BP 124/46
[2020-04-21] MEDS: ATORVASTATIN 20 MG TAB PO SCH (23:18)
--- NOTE | 2020-04-22 01:30 | NUR ---
Patient started to be anxious and wanted to get up to look for her sick son. Assisted patient back in bed and covered patient.
--- NOTE | 2020-04-22 03:00 | NUR ---
Patient has bed removing telebox monitor X 2 and refusing to put it back in. Will try again later.
[2020-04-22 05:00] VITALS: BP 142/73
--- NOTE | 2020-04-22 05:32 | NUR ---
Patient is c/o pain to shoulders and back. Will paged hospitalist.
--- NOTE | 2020-04-22 05:55 | NUR ---
Hospitalist paged paged for patient's c/o pain. Awaiting call back.
--- NOTE | 2020-04-22 05:56 | NUR ---
Patient agreed to placed telemonitor back on. Patient continues to be restless and gets up to find her dogs and son almost every 10 minutes. Assisted patient back in bed and explained to patient that she needs to get in bed to get better so she can go home with her son and dogs.
--- NOTE | 2020-04-22 05:59 | NUR ---
Charge Nurse is aware of patient's confusion and requested patient to have a sitter. Patient is very weak and unstable to her feet. Will monitor
--- NOTE | 2020-04-22 06:30 | NUR ---
Sitter at bedside.
[2020-04-22] MEDS: ALBUTEROL SULF HFA 90MCG INH 200DOSE IN SCH ×3 (07:09→21:23)
[2020-04-22] MEDS: BUDESONIDE (INHALATION) 180 MCG IH IN SCH ×2 (07:10→21:23)
--- NOTE | 2020-04-22 07:10 | NUR ---
Respiratory note: seen pt for mdi's this am. albuterol inhaler not working. will call pharmacy for replacement. only pulmocort mdi given this am.
[2020-04-22 09:00] VITALS: BP 111/81
[2020-04-22] MEDS: cefTRIAXone 1GM/50ML D5W 50 ML IV SCH (10:36)
[2020-04-22] MEDS: DOXYCYCLINE 100MG/250ML 250 ML IV SCH ×2 (10:37→21:19)
[2020-04-22] MEDS: DexAMETHasone SOD PHOS 10MG/1ML VIAL INJ IV SCH (10:37)
[2020-04-22] MEDS: ZINC SULFATE 220mg CAP or TAB PO SCH (10:37)
[2020-04-22] MEDS: ASCORBIC ACID 1,000 MG TAB PO SCH (10:37)
[2020-04-22] MEDS: CHOLECALCIFEROL (VITD3) 2,000 UNIT CAP PO SCH (10:40)
[2020-04-22] MEDS: ENOXAPARIN SOD 30 MG/0.3 ML SYRINGE SC SCH (10:41)
--- NOTE | 2020-04-22 11:59 | NUR ---
Quoc SANTIAGO. INFORMED OF PATIENT STATUS. INFORMED OF OXYGEN USE AT 2L NC. RECEIVED ORDERS FOR CONVALESCENT PLASMA. WILL FOLLOW THROUGH.
[2020-04-22 13:00] VITALS: BP 110/79
[2020-04-22 17:00] VITALS: BP 108/58
--- NOTE | 2020-04-22 19:15 | NUR ---
Opening Shift Note Received report from carisa Hi RN. Assumed care of patient, awake and alert but confused. No S/S of distress/SOB or pain. Sitter at bedside. Insructed on POC and to callfor assist PRN, will continue to monitor for changes Q1hr and PRN. Bed placed in lowest position, bed alarm turned on and call light within reach.
[2020-04-22] MEDS: ATORVASTATIN 20 MG TAB PO SCH (21:19)
[2020-04-22] MEDS: GABAPENTIN 300 MG CAP PO SCH (21:19)
[2020-04-22 22:00] VITALS: BP 123/68
--- NOTE | 2020-04-23 01:46 | NUR ---
IV pulled Patient pulled IV accidentally. Catheter intact. Pressure dressing applied to IV site. Patient has a sitter and very confused. Patient is resting in bed awake and fidgeting. No distress noted and patient denies pain.
[2020-04-23 05:00] VITALS: BP 91/57
[2020-04-23] MEDS: BUDESONIDE (INHALATION) 180 MCG IH IN SCH ×2 (06:15→22:44)
[2020-04-23] MEDS: ALBUTEROL SULF HFA 90MCG INH 200DOSE IN SCH ×3 (06:15→22:44)
--- NOTE | 2020-04-23 08:00 | NUR ---
PATIENT RESTING IN BED RESPIRATIONS EVEN AND UNLABORED. NO S/S OF DISTRESS NOTED AT THIS TIME. PATIENT ON ROOM AIR. NO S/S OF DISTRESS NOTED AT THIS TIME. BED IN LOWEST LOCKED POSITION WITH CALL LIGHT WITHIN REACH.
[2020-04-23] MEDS ORDERED: ENOXAPARIN SOD 40 MG/0.4 ML SYRINGE SC SCH (10:00)
--- NOTE | 2020-04-23 10:38 | NUR ---
Quoc GILLETTE ROUNDING: INFORMED OF PATIENT STATUS. INFORMED PATIENTS ON ROOM AIR AT THIS TIME WITH OXYGEN SATURATIONS AT 98%. INSTRUCTED TO HOLD CONVALESCENT PLASMA AND SWITCH IV MEDICATIONS TO P.O. WILL FOLLOW THROUGH.
[2020-04-23] MEDS ORDERED: DexAMETHasone 4 MG TAB PO ONE (10:45)
[2020-04-23] MEDS ORDERED: DOXYCYCLINE 100 MG TAB/CAP PO ONE (10:45)
[2020-04-23] MEDS: ZINC SULFATE 220mg CAP or TAB PO SCH (10:49)
[2020-04-23] MEDS: GABAPENTIN 300 MG CAP PO SCH ×2 (10:50→22:25)
[2020-04-23] MEDS: ASCORBIC ACID 1,000 MG TAB PO SCH (10:50)
[2020-04-23] MEDS: CHOLECALCIFEROL (VITD3) 2,000 UNIT CAP PO SCH (10:50)
[2020-04-23] MEDS ORDERED: FUROSEMIDE 40 MG/4 ML VIAL IV ONE (13:00)
--- NOTE | 2020-04-23 13:00 | NUR ---
STATUS CHANGE: PATIENT COMPLAINING OF SOB. PATIENTS OXYGEN SATURATIONS AT 78%. PATIENT PLACED ON NON REBREATHER 15L. OXYGEN SATURATIONS AT NOW AT 94%. INFORMED Quoc GILLETTE OF STATUS CHANGE. RECEIVED NEW ORDERS. SEE EMAR. Addendum: 04/23/20 at 1450 by NIKITA RODRIGUEZ RN RN PATIENT HAS AUDIBLE WHEEZING. INFORMED Quoc GILLETTE.
--- NOTE | 2020-04-23 13:10 | NUR ---
IV INSERTED TO LFA 22 BY CERTIFIED TECHNICIAN SPECIALIST RHONDA. ONE ATTEMPT
[2020-04-23] MEDS ORDERED: ACETAMINOPHEN 325 MG TAB PO PRN (13:45)
[2020-04-23] MEDS ORDERED: ACETAMINOPHEN 500 MG TAB PO PRN ×2 (13:45→14:15)
--- NOTE | 2020-04-23 19:02 | NUR ---
SPOKE TO JOSE G DAUGHTER TO INFORM OF PATIENTS CURRENT CONDITION INCLUDING OXYGEN STATUS.
[2020-04-23] MEDS ORDERED: DOXYCYCLINE 100MG/250ML 250 ML IV SCH (19:15)
--- NOTE | 2020-04-23 19:15 | NUR ---
Opening Shift Note Received report from carisa Hi RN. Assumed care of patient, awake and alert, but confused. No S/S of distress/SOB or pain. Patient is on 15 L nonrebreather saturating at 93%. Sitter at bedside. Instructed on POC and to call for assist PRN, will continue to monitor for changes Q1hr and PRN.
[2020-04-23 19:26] VITALS: BP 94/52
[2020-04-23 22:00] VITALS: BP 95/55
[2020-04-23] MEDS: ATORVASTATIN 20 MG TAB PO SCH (22:25)
[2020-04-23] MEDS: ENOXAPARIN SOD 40 MG/0.4 ML SYRINGE SC SCH (22:26)
[2020-04-24] VITALS (7 sets, daily range): BP systolic 84–105; BP diastolic 40–50
--- NOTE | 2020-04-24 04:01 | NUR ---
Patient is resting in bed alert and awake with eyes closed. No distress noted and denies pain. On 15L Non-Rebreather saturating at 95%.
[2020-04-24 06:40] LABS: Basophils # (auto) 0 10 ^3/uL (0-0.2); Eosinophils # (auto) 0 10 ^3/uL (0-0.8); Hematocrit 40.3 % (36.0-46.0); Lymphocytes # (auto) 0.5 10 ^3/uL (0.4-5.4); Lymphocytes % (auto) 4.7 % (10.0-50.0); Mean Corpuscular Hemoglobin 27.6 pg (28.0-32.0); Mean Corpuscular Hgb Conc. 32.3 g/dL (32.0-36.0); Mean Corpuscular Volume 85.2 fL (80.0-100.0); Monocytes # (auto) 0.3 10 ^3/uL (0-1.3); Neutrophils # (auto) 10.4 10 ^3/uL (1.6-8.6); Neutrophils % (auto) 92.3 % (37.0-80.0); Platelet Count (auto) 237 10^3/uL (140-450); Red Blood Cells 4.73 10^6/uL (4.0-5.20); Red Cell Distribution Width 16.3 % (11.8-14.3); White Blood Cell 11.3 10^3/uL (4.4-10.8)
--- NOTE | 2020-04-24 06:59 | NUR ---
Urine Specimen sent to lab
[2020-04-24 07:02] LABS: Albumin 2.6 g/dL (3.4-5.0); Anion Gap 5 (5-15); Aspartate Aminotransferase 37 U/L (15-37); Blood Urea Nitrogen 19 mg/dL (7-18); Carbon Dioxide 24 mmol/L (21-32); Chloride 110 mmol/L (98-107); Glucose 99 mg/dL (74-106); Potassium 3.8 mmol/L (3.5-5.1); Sodium 139 mmol/L (136-145)
[2020-04-24] MEDS: ALBUTEROL SULF HFA 90MCG INH 200DOSE IN SCH ×3 (07:16→21:39)
[2020-04-24] MEDS: BUDESONIDE (INHALATION) 180 MCG IH IN SCH ×2 (07:16→21:39)
[2020-04-24 07:24] LABS: Alanine Aminotransferase 22 U/L (13-56); Alkaline Phosphatase 89 U/L (45-117); BUN/Creatinine Ratio 22.1; Bilirubin, Total 0.6 mg/dL (0.2-1.0); GFR African American 80 mL/min; GFR Non-African American 66 mL/min; Lactate Dehydrogenase 653 U/L (84-246); Total Protein 7.4 g/dL (6.4-8.2)
[2020-04-24 07:33] LABS: CRP High Sensitivity > 19 mg/dL (< 0.3)
[2020-04-24 07:48] LABS: Urine Bacteria NONE SEEN /hpf (None Seen); Urine Blood Negative /uL (Negative); Urine Specific Gravity 1.009 (1.001-1.035); Urine WBC 1 /hpf (0 - 5)
--- NOTE | 2020-04-24 09:09 | NUR ---
PAGED RT FOR O2 SAT 71-88%, PT ON NON REBREATHER 15L.
[2020-04-24] MEDS: cefTRIAXone 1GM/50ML D5W 50 ML IV SCH (09:16)
[2020-04-24] MEDS: ENOXAPARIN SOD 40 MG/0.4 ML SYRINGE SC SCH (09:17)
[2020-04-24] MEDS: ZINC SULFATE 220mg CAP or TAB PO SCH (09:17)
[2020-04-24] MEDS: GABAPENTIN 300 MG CAP PO SCH ×2 (09:17→22:14)
[2020-04-24] MEDS: DOXYCYCLINE 100MG/250ML 250 ML IV SCH ×2 (09:17→22:14)
[2020-04-24] MEDS: DexAMETHasone SOD PHOS 10MG/1ML VIAL INJ IV SCH (09:17)
[2020-04-24] MEDS: CHOLECALCIFEROL (VITD3) 2,000 UNIT CAP PO SCH (09:18)
[2020-04-24] MEDS: ASCORBIC ACID 1,000 MG TAB PO SCH (09:18)
--- NOTE | 2020-04-24 11:27 | NUR ---
Nutrition Assessment Est energy needs [id number] kcal (25-30 kcal/kg BW 61.1kg) Est protein needs 49-61g (0.8-1g/kg BW 61kg) Will monitor and reassess prn. Addendum: 04/24/20 at [address] Amended: Links added.
[2020-04-24] MEDS ORDERED: ALBUMIN 25% 50 ML IV ONE (11:30)
[2020-04-24] MEDS ORDERED: FUROSEMIDE 20 MG/2 ML VIAL IV ONE (11:30)
--- NOTE | 2020-04-24 15:47 | NUR ---
convalescent plasma started, no adverse reaction noted.
--- NOTE | 2020-04-24 16:16 | NUR ---
LOW BP DR. GILLETTE INFORM OF PT'S BP 87/47, 89/40 AND 84/49. RECEIVED ORDER TO GIVE ALBUMIN 25GRAMS ONE DOSE.
[2020-04-24] MEDS ORDERED: ALBUMIN 25% 100 ML IV ONE (16:30)
--- NOTE | 2020-04-24 17:18 | NUR ---
convalescent plasma transfusion ended.
[2020-04-24] MEDS: ENOXAPARIN SOD 100 MG/1 ML SYRINGE SC SCH (22:14)
[2020-04-24] MEDS: ATORVASTATIN 20 MG TAB PO SCH (22:14)
--- NOTE | 2020-04-25 05:25 | NUR ---
RT PAGED PATIENTS O2 SATURATION WAS REMAINING AT 80% ON 15L NON REBREATHER MASK. RT PLACED PATIENT ON BIPAP AND NOW IS SATURATING AT 99%. WILL CONTINUE TO MONITOR.
[2020-04-25] MEDS: BUDESONIDE (INHALATION) 180 MCG IH IN SCH ×2 (07:55→22:05)
[2020-04-25] MEDS: ALBUTEROL SULF HFA 90MCG INH 200DOSE IN SCH ×3 (07:55→22:05)
[2020-04-25] MEDS: ZINC SULFATE 220mg CAP or TAB PO SCH (10:00)
[2020-04-25] MEDS: ENOXAPARIN SOD 100 MG/1 ML SYRINGE SC SCH ×2 (10:07→22:00)
[2020-04-25] MEDS: DexAMETHasone SOD PHOS 10MG/1ML VIAL INJ IV SCH (10:07)
[2020-04-25] MEDS: CHOLECALCIFEROL (VITD3) 2,000 UNIT CAP PO SCH (10:07)
[2020-04-25] MEDS: ASCORBIC ACID 1,000 MG TAB PO SCH (10:08)
[2020-04-25] MEDS: DOXYCYCLINE 100MG/250ML 250 ML IV SCH ×2 (10:08→22:22)
[2020-04-25] MEDS: GABAPENTIN 300 MG CAP PO SCH ×2 (10:08→22:22)
[2020-04-25] MEDS: cefTRIAXone 1GM/50ML D5W 50 ML IV SCH (10:10)
--- NOTE | 2020-04-25 13:52 | NUR ---
REPORT GIVEN TO JUAN MANUEL MICHAELS. ALL QUESTIONS AND CONCERNS ADDRESSED. MD NIAN EDWARD SPOKE TO FAMILY REGARDING REMDESIVIR THERAPY. JOSE G DAUGHTER CONTACTED- JOSE G AGREES TO REMDESIVIR THERAPY. CONSENT WITNESSED. IV CATHETER DC'D TO RFA#22, CATHETER INTACT. BRUISING NOTED TO SITE. HEMOSTASIS OBTAINED. IV INSERTION TO LFA#22, FLUSHES WELL, PT TOLERATED PROCEDURE WELL. PT TRANSFERRED TO [facility].TRANSPORTED VIA WHEELCHAIR ON NR MASK. TOLERATED TRANSPORT WELL.
--- NOTE | 2020-04-25 13:55 | NUR ---
Respiratory note: PATIENT TRANSPORTED TO [facility] 262 WITH BRANDO SANTANA. SHE WAS REMOVED FROM BIPAP NAD PLACED ON A NRB AT 15LPM. ONCE IN NEW ROOM SHE WAS PLACED BACK ON BIPAP WITH ALL PREVIOUSLY ORDERED SETTINGS. SPO2 94%.
--- NOTE | 2020-04-25 13:57 | NUR ---
PT IN [facility] PT CONNECTED TO BIPAP, BREATHING EVEN AND UNLABORED. NO DISTRESS NOTED. CALL LIGHT WITHIN REACH AND BED LOCKED FOR SAFETY. CONNECTED TO MONITOR AND VISIBLE FROM NURSES STATION.
[2020-04-25] MEDS ORDERED: ALPRAZolam 0.25 MG TAB PO ONE (15:30)
--- NOTE | 2020-04-25 16:20 | NUR ---
PT EDUCATED REORIENTING PT AND REMINDING TO KEEP BIPAP MASK ON. PT AGREED BUT HAS PERIODS OF FORGETFULNESS.
[2020-04-25] MEDS ORDERED: REMDESIVIR 200 MG in NS 210ml LOADING DOSE ADULT IV ONE (18:00)
[2020-04-25 20:00] VITALS: BP 110/39
[2020-04-25] MEDS: ATORVASTATIN 20 MG TAB PO SCH (22:21)
[2020-04-26] VITALS: BP 93/31
[2020-04-26 04:00] VITALS: BP 95/43
[2020-04-26] MEDS: BUDESONIDE (INHALATION) 180 MCG IH IN SCH ×2 (06:13→20:16)
[2020-04-26] MEDS: ALBUTEROL SULF HFA 90MCG INH 200DOSE IN SCH ×3 (06:13→20:16)
--- NOTE | 2020-04-26 06:31 | NUR ---
Pt tolerated bipap well this shift. Many periods of confusion and forgetfulness but pleasant and often able to reorient. Lt HD 22 remains patent. Valverde to gravity and patent. Pt was bathed and linens changed. Such a sweet and dear disposition. O2 sat remained 91-100 on 85% FiO2.
--- NOTE | 2020-04-26 07:33 | NUR ---
Pt remains stable. Report given, care endorsed.
--- NOTE | 2020-04-26 07:33 | NUR ---
REPORT RECEIVED FROM GEOTHERMAL POWERPLANT MECHANIC HELPER RN
[2020-04-26 08:00] VITALS: BP 102/49
--- NOTE | 2020-04-26 08:01 | NUR ---
NONBLANCHABLE REDNESS NOTED TO BRIDGE OF NOSE BIPAP READJUSTED FOR COMFORT AND SKIN INTEGRITY
[2020-04-26] MEDS: cefTRIAXone 1GM/50ML D5W 50 ML IV SCH (08:54)
[2020-04-26] MEDS: GABAPENTIN 300 MG CAP PO SCH ×2 (09:18→20:09)
[2020-04-26] MEDS: ZINC SULFATE 220mg CAP or TAB PO SCH (09:18)
[2020-04-26] MEDS: ENOXAPARIN SOD 100 MG/1 ML SYRINGE SC SCH (09:19)
[2020-04-26] MEDS: ASCORBIC ACID 1,000 MG TAB PO SCH (09:19)
[2020-04-26] MEDS: CHOLECALCIFEROL (VITD3) 2,000 UNIT CAP PO SCH (09:19)
--- NOTE | 2020-04-26 09:19 | NUR ---
LOVENOX REFUSAL EDUCATED PATIENT ON IMPORTANCE OF LOVENOX, PATIENT STATES "MAYBE LATER"
[2020-04-26] MEDS: DOXYCYCLINE 100MG/250ML 250 ML IV SCH ×2 (09:54→21:30)
[2020-04-26] MEDS: DexAMETHasone SOD PHOS 10MG/1ML VIAL INJ IV SCH (10:24)
--- NOTE | 2020-04-26 10:30 | NUR ---
Respiratory note: PT NOT TOLERATING BIPAP. PT KEEPS TAKING OFF MASK. PT PLACED ON NRB MASK AT 15 LPM. PT KEEPS TAKING OFF OXYGEN. PT EDUCATED ON THE NEED AND BENEFIT OF OXYGEN.
--- NOTE | 2020-04-26 10:50 | NUR ---
PATIENT CONTINUES TO PULL AT OXYGEN MASK AFTER BEING TOLD NUMEROUS TIMES TO NOT PULL AT MASK OXYGEN SATURATION DECREASED TO 65% WITH A DUSKY COLOR AND PATIENT SATING THAT SHE IS DIZZY, MASK IMMEDIATELY REAPPLIED AND EDUCATED TO NOT REMOVE MASK
--- NOTE | 2020-04-26 11:30 | NUR ---
RESTRAINTS PATIENT CONSTANTLY PULLING AT OXYGEN MASK, DESATURATING TO THE POINT OF PATIENT FEELING DIZZY, HAVE REORIENTATED PATIENT NUMEROUS TIMES WITH PATIENT PULLING AT MASK WHEN RN LEAVES ROOM. RESTRAINT ORDER OBTAINED BY DR. GILLETTE. SOFT RESTRAINTS APPLIED TO BOTH WRISTS WITH SITES BENIGN, TEMPERATURE, COLOR, SENSATION ALL WITHIN NORMAL LIMITS AT THIS TIME
[2020-04-26 12:00] VITALS: BP 105/65
--- NOTE | 2020-04-26 12:51 | NUR ---
FAMILY DAUGHTER ROGER UPDATED ON PATIENT STATUS AND HAVING TO PLACE THE PATIENT IN SOFT RESTRAINTS FOR THE PATIENTS OWN SAFETY. ALL QUESTIONS ADDRESSED AT THIS TIME
--- NOTE | 2020-04-26 14:40 | NUR ---
Respiratory note: PT P;ACED ON 15 LPM OXYMIZER. PT TOLERATING WELL.
[2020-04-26 16:00] VITALS: BP 121/52
[2020-04-26] MEDS: REMDESIVIR 100mg in NS 230ml DAILYx4DAYS (NO VENT) IV SCH (16:43)
--- NOTE | 2020-04-26 17:21 | NUR ---
Assessment Patient was unable to participate with SW for assessment, SW called daughter Lizeth to conduct assessment. Per daughter, patient is alert and oriented. Per daughter, patient can do all ADL's and walks with cane or a walker. Per daughter, patient lives alone but her grandson has recently moved in while patient is admitted at [facility]. Per daughter, patient will return home post discharge and grandson will provide transportation. Per daughter, patient has her daughters and grandchildren as support system. Per daughter, patient has a POA, but not on file with [facility]. Discharge planning: Patient will return home post discharge, patient will follow up with PCP post discharge. There are no other discharge needs to address at the moment. Addendum: 04/26/20 at 1726 by RENEE RICARDO Amended: Links added.
--- NOTE | 2020-04-26 19:31 | NUR ---
Provided report to Mariann MICHAELS
--- NOTE | 2020-04-26 19:45 | NUR ---
Opening Shift Note Assumed care of patient received report from nurse Natalie, awake and alert but confused attempting to pull on lines and oxygen mask. Patient currently has bilateral soft wrist restraints and mittens. PO fluids offered to patient. No S/S of distress/SOB on 15L nonrebreather or no c/o pain, redness noted to bridge of nose from the nonrebreather mask bandaid applied. Instructed on POC to keep oxygen mask on stress importance of oxygen and to call for assist PRN, will continue to monitor for changes Q1hr and PRN.
[2020-04-26 20:00] VITALS: BP 107/47
--- NOTE | 2020-04-26 20:00 | NUR ---
MITTENS/BILATERAL SOFT WRIST RESTRAINTS PATIENT HAS BILATERAL SOFT WRIST RESTRAINTS AND MITTENS FOR PULLING ON LINES AND OXYGEN. EDUCATED PATIENT ABOUT RESTRAINTS. PATIENT UNABLE TO REDIRECT OR FOLLOW COMMANDS. PATIENT +CMS TO BILATERAL HANDS, PO FLUIDS OFFERED. REPOSITIONED PATIENT BUT PATIENT IS RESTLESS AND MOVES AROUND IN BED. CALL LIGHT WITHIN REACH, BED TO LOWEST POSITION, PATIENT LINE OF SIGHT WILL CONTINUE TO MONITOR PATIENT.
[2020-04-26] MEDS: ENOXAPARIN SOD 60 MG/0.6 ML SYRINGE SC SCH (20:09)
[2020-04-26] MEDS: ATORVASTATIN 20 MG TAB PO SCH (20:09)
[2020-04-26] MEDS: LORazepam 2MG/ML-1ML VIAL IV PRN (20:10)
--- NOTE | 2020-04-26 22:45 | NUR ---
PATIENT KEPT REMOVING NONREBREATHER EVEN WITH BILATERAL MITTENS AND SOFT WRIST RESTRAINTS AND DESATURATES LOW 80S. REPOSITIONED PATIENT. PATIENT ON 15L NONREBREATHER SATURATING 85-87% HR 100-110S. PT BIPAP ON STANDBY, APPLIED BIPAP WITH FI02 65%. PATIENT LESS AGGITATED AND RELAXED O2 SAT 92% WITH HR 90S. WILL CONTINUE TO MONITOR PATIENT.
[2020-04-27] VITALS (10 sets, daily range): BP systolic 107–143; BP diastolic 42–96
--- NOTE | 2020-04-27 00:15 | NUR ---
Respiratory note: WENT TO BEDSIDE TO ASSESS PATIENT. PT WAS PLACED ON BIPAP BY RN, RT WAS NOT PAGED OR NOTIFIED. WILL CONTINUE TO MONITOR.
--- NOTE | 2020-04-27 00:45 | NUR ---
IV ACCESS INFILTRATED PATIENT IV ACCESS 22G LFA INFILTRATED AND WAS LEAKING. REMOVED IV ACCESS CATHETER TIP STILL INTACT AND PRESSURE DRESSING APPLIED. ATTEMPTED TO REINSERT IV ACCESS WITH NO SUCCESS. PLACED ORDER FOR MIDLINE IN AM.
--- NOTE | 2020-04-27 00:49 | NUR ---
UPDATED FAMILY PASSWORD CONFIRMED, UPDATED FAMILY REGARDING PATIENT PLAN OF CARE AND STATUS.
--- NOTE | 2020-04-27 02:07 | NUR ---
DESATURATING PATIENT DESATURATING IN 80S, HR 90-100S. AT PATIENT BEDSIDE READJUSTED PATIENT PULSE OXIMETRY, NOTICED PATIENT BIPAP MASK AIR LEAK ON BOTTOM OF MASK ALARMING, BUT PATIENT IN NO APPARENT RESPIRATORY DISTRESS. RT MAKING HER INFORMED HER OF PATIENT AIR LEAK IN MASK PATIENT NEEDS TO BE REFITTED FOR A SMALLER MASK. RT REFITTED PATIENT WITH A SMALLER MASK. REPOSITIONED PATIENT WITH HOB ABOVE 30 DEGREES, EDUCATED PATIENT ON BILATERAL SOFT WRIST RESTRAINTS, PATIENT CONTINUES TO PULL ON LINES AND OXYGEN MASK UNABLE TO FOLLOW COMMANDS. PATIENT O2 SAT 94% HR 70-80S RESP 27 WITH FIO2 70% WITH NO CHANGE IN REMAINING BIPAP SETTINGS. WILL CONTINUE TO MONITOR PATIENT.
--- NOTE | 2020-04-27 02:10 | NUR ---
Respiratory note: AT BEDSIDE FOR BIPAP CHECK, PT SPO2 NOTED AT 84%, RT WAS NOT PAGED FOR DESATURATION. LEAK ON BIPAP NOTED AT 127, BIPAP ALARMING. PT REFITTED WITH A SIZE SMALL FACIAL MASK, BANDAGE NOTED ON PT'S NOSE. BANDAGE NOT PLACED BY THIS RT, UNABLE TO SEE LEVEL OF BREAKDOWN/REDNESS. PREVIOUS NURSING NOTES MENTIONED REDNESS ON BRIDGE OF NOSE. PROTECT-A GEL PLACED TO PREVENT FURTHER REDNESS AND BREAKDOWN. LEAK IMPROVED TO 23. INCREASED FIO2 TO 70%. SPO2 NOTED AT 95-97%. BIPAP ALARMS ON AND AUDIBLE. WILL CONTINUE TO MONITOR.
--- NOTE | 2020-04-27 03:45 | NUR ---
Declining oxygenation Oxygen sat dropped to 70 plus ox wave from not good and Bipap not alarming applied new pulse oxy patient sat remained in the 80's with good wave form RT called, Bipap Settings adjusted by RT patient oxygen saturation increased to 97%
[2020-04-27 04:29] LABS: Albumin 2.5 g/dL (3.4-5.0); BUN/Creatinine Ratio 33.8; Bilirubin, Total 0.6 mg/dL (0.2-1.0); Calcium 8.4 mg/dL (8.5-10.1); Potassium 3.8 mmol/L (3.5-5.1); Total Protein 6.4 g/dL (6.4-8.2)
[2020-04-27] MEDS: BUDESONIDE (INHALATION) 180 MCG IH IN SCH ×2 (05:41→19:46)
[2020-04-27] MEDS: ALBUTEROL SULF HFA 90MCG INH 200DOSE IN SCH ×3 (05:41→19:46)
--- NOTE | 2020-04-27 07:29 | NUR ---
REPORT GAVE REPORT TO NURSE BARON TO RESUME CARE OF PATIENT
--- NOTE | 2020-04-27 07:30 | NUR ---
Opening Shift Note Received pt on bipap with bilateral soft restraints on. Assessed pt need for restraints. Untied restraints for the time. Will continue to monitor closely. Pt confused but verbalized understanding to keep the bipap mask on. No skin breakdown under restraints noted. Full assessment done see interventions. Valverde catheter intact draining to gravity. Bed locked in lowest positions. All alarms on and audible. Bed rails up times four for patient safety.
--- NOTE | 2020-04-27 07:35 | NUR ---
Pt does not have any IV access. order for midline. Will attempt to place IV. Pt is a very hard stick.
[2020-04-27] MEDS: cefTRIAXone 1GM/50ML D5W 50 ML IV SCH (09:00)
[2020-04-27] MEDS: ASCORBIC ACID 1,000 MG TAB PO SCH (10:00)
[2020-04-27] MEDS: DOXYCYCLINE 100MG/250ML 250 ML IV SCH ×2 (10:00→22:04)
[2020-04-27] MEDS: GABAPENTIN 300 MG CAP PO SCH ×2 (10:00→22:00)
[2020-04-27] MEDS: DexAMETHasone SOD PHOS 10MG/1ML VIAL INJ IV SCH (10:00)
[2020-04-27] MEDS: ENOXAPARIN SOD 60 MG/0.6 ML SYRINGE SC SCH ×2 (10:00→22:08)
[2020-04-27] MEDS: ZINC SULFATE 220mg CAP or TAB PO SCH (10:00)
[2020-04-27] MEDS: CHOLECALCIFEROL (VITD3) 2,000 UNIT CAP PO SCH (10:00)
--- NOTE | 2020-04-27 10:13 | NUR ---
Restraints reapplied. Pt pulled bipap off and attempted to get out of bed.
--- NOTE | 2020-04-27 10:42 | NUR ---
Respiratory note: PT TAKEN OFF BIPAP AND PLACED ON 15 L NRB, SPO2 94%. PT APPEARS TO BE TOLERATING NRB BETTER THAN BIPAP.
[2020-04-27] MEDS ORDERED: HALOPERIDOL LACTATE 5 MG/ML INJ VIAL ONE (11:53)
--- NOTE | 2020-04-27 12:00 | NUR ---
Multiple attempts for IV access, with no success by multiple RN's. Obtained consent for central line/ PICC line. No Midline/PICC line nurse available today. Attempted for ER doctor to place line, with no success. Will keep trying.
[2020-04-27] MEDS ORDERED: HALOPERIDOL LACTATE 5 MG/ML INJ VIAL IM PRN (12:15)
--- NOTE | 2020-04-27 13:00 | NUR ---
MD Winter at bedside aware of pt agitation and no IV access. MD ordered IM Haldol 5mg and IM ativan 1mg.
--- NOTE | 2020-04-27 14:22 | NUR ---
Skin tear noted to right hand. Wound pictures taken. Addendum: 04/27/20 at 1423 by TOD DUKES RN optifoam placed
--- NOTE | 2020-04-27 16:53 | NUR ---
Dr. Carmona at bedside placing central line to left femoral. Consents authorized by daughter, Lizeth
[2020-04-27] MEDS: REMDESIVIR 100mg in NS 230ml DAILYx4DAYS (NO VENT) IV SCH (17:46)
[2020-04-27] MEDS: LORazepam 2MG/ML-1ML VIAL IV PRN ×2 (18:20→22:25)
--- NOTE | 2020-04-27 19:36 | NUR ---
Report given to maintenance mechanic 2nd shift RN
--- NOTE | 2020-04-27 20:00 | NUR ---
OPEN NOTES ASSUMED CARE OF PATIENT. PATIENT IS RESTLESS IN BED. WHEN ASKED IF IN PAIN OR IF SHE NEEDS ANYTHING , SHE WONT ANSWER. SHE LOOKED IRRITATED AND ANGRY. WITH BILATERAL HAND SOFT RESTRAINTS. RELEASED RESTRAINTS, CHECKED SITE. RE-APPLIED WITH MITTENS. REPOSITIONED. ORAL CARE DONE. PATIENT ON BIPAP MASK IPAP 13, EPAP 8, FIO2 80%, SATS 91-93% OFFERED WATER AND FOOD - PATIENT REFUSED. WITH PUGA CATHETER DRAINING YELLOWISH URINE OUTPUT. RIGHT FEMORAL TLC - DRESSING DRY AND INTACT. FULL ASSESSMENT DONE -REFER INTERVENTIONS
[2020-04-27] MEDS: ATORVASTATIN 20 MG TAB PO SCH (22:00)
--- NOTE | 2020-04-27 22:00 | NUR ---
ORAL MEDICATION NOT GIVEN PATIENT REFUSED TO TAKE MEDICATION EVEN WATER ORAL CARE DONE
--- NOTE | 2020-04-27 22:05 | NUR ---
RESTRAINTS RELEASED, SITE CHECKED EVERY 2HOURS REFER INTERVENTIONS
--- NOTE | 2020-04-27 22:25 | NUR ---
PATIENT GETTING MORE RESTLESS, PUTTING FEET OUT OF BED UNABLE TO FOLLOW COMMANDS KEPT ON RESTRAINTS, ASKED IN IF PAIN - SHE SAID NO WILL GIVE ATIVAN ORDERED
[2020-04-28] VITALS (17 sets, daily range): BP systolic 103–153; BP diastolic 39–109
--- NOTE | 2020-04-28 | NUR ---
PATIENT RESTING NOW, VS STABLE
--- NOTE | 2020-04-28 04:00 | NUR ---
MITTENS REMOVED, RESTRAINTS RELEASED SITE CHECKED, OFFERED WATER. SPONGE BATH DONE LINENS CHANGED MITTENS AND RESTRAINTS RE-APPLIED O PREVENT PULLING OF LINES AND BIPAP MASK PATIENT IS MORE CALM NOW Addendum: 04/28/20 at 0437 by Idalia Bianchi RN ORAL CARE DONE
[2020-04-28 04:25] LABS: Basophils # (auto) 0 10 ^3/uL (0-0.2); Basophils % (auto) 0.1 % (0.0-2.0); Eosinophils # (auto) 0 10 ^3/uL (0-0.8); Lymphocytes # (auto) 0.4 10 ^3/uL (0.4-5.4); Neutrophils # (auto) 11.6 10 ^3/uL (1.6-8.6); Platelet Count (auto) 267 10^3/uL (140-450); White Blood Cell 12.5 10^3/uL (4.4-10.8)
[2020-04-28 04:27] LABS: Eosinophils % (auto) 0.1 % (0.0-7.0); Hematocrit 34.1 % (36.0-46.0); Lymphocytes % (auto) 3.1 % (10.0-50.0); Mean Corpuscular Hemoglobin 27.1 pg (28.0-32.0); Mean Corpuscular Hgb Conc. 32.4 g/dL (32.0-36.0); Mean Corpuscular Volume 83.7 fL (80.0-100.0); Monocytes # (auto) 0.5 10 ^3/uL (0-1.3); Monocytes % (auto) 3.6 % (0.0-12.0); Neutrophils % (auto) 93.1 % (37.0-80.0); Red Blood Cells 4.08 10^6/uL (4.0-5.20); Red Cell Distribution Width 16.2 % (11.8-14.3)
[2020-04-28 04:49] LABS: BUN/Creatinine Ratio 37.1; Calcium 8.5 mg/dL (8.5-10.1); Potassium 3.6 mmol/L (3.5-5.1)
[2020-04-28] MEDS: ALBUTEROL SULF HFA 90MCG INH 200DOSE IN SCH ×3 (06:00→21:55)
--- NOTE | 2020-04-28 07:45 | NUR ---
Patient visually checked and noted to have soft restraints on to bilateral hands. Patient laying in bed and repositioned on right side for comfort. will continue to monitor.
[2020-04-28] MEDS: cefTRIAXone 1GM/50ML D5W 50 ML IV SCH (08:32)
[2020-04-28] MEDS: DexAMETHasone SOD PHOS 10MG/1ML VIAL INJ IV SCH (08:34)
[2020-04-28] MEDS: ENOXAPARIN SOD 60 MG/0.6 ML SYRINGE SC SCH ×2 (08:35→22:00)
[2020-04-28] MEDS: LORazepam 2MG/ML-1ML VIAL IV PRN ×2 (08:35→13:37)
[2020-04-28] MEDS: ZINC SULFATE 220mg CAP or TAB PO SCH (10:00)
[2020-04-28] MEDS: GABAPENTIN 300 MG CAP PO SCH ×2 (10:00→22:00)
[2020-04-28] MEDS: BUDESONIDE (INHALATION) 180 MCG IH IN SCH ×2 (10:00→21:55)
[2020-04-28] MEDS: CHOLECALCIFEROL (VITD3) 2,000 UNIT CAP PO SCH (10:00)
[2020-04-28] MEDS: ASCORBIC ACID 1,000 MG TAB PO SCH (10:00)
--- NOTE | 2020-04-28 10:54 | NUR ---
Family updated on pt status Family of EPIFANIO MAYS updated on patient's status and condition with password verification. All questions and concerns addressed. Patients grandson verbalized understanding and states he will call back in the evening to check on patients status again.
--- NOTE | 2020-04-28 11:04 | NUR ---
Family updated on pt status Family of EPIFANIO MAYS updated on patient's status and condition with password verification. All questions and concerns addressed. Patients daughter verbalized understanding.
--- NOTE | 2020-04-28 11:22 | NUR ---
Dr Salguero in [facility] unit and made aware of patients intermittent a-fib and chest xray results with new right pneumothorax, no new orders received.
[2020-04-28] MEDS ORDERED: HALOPERIDOL LACTATE 5 MG/ML INJ VIAL IM PRN (11:30)
[2020-04-28] MEDS: DOXYCYCLINE 100MG/250ML 250 ML IV SCH ×2 (11:33→22:00)
--- NOTE | 2020-04-28 14:22 | NUR ---
Family updated on pt status Family of EPIFANIO MAYS called back and updated on patient's status and condition with password verification. All questions and concerns addressed. Patients daughter, Nida, verbalized understanding and states she will call back in a day or two.
--- NOTE | 2020-04-28 14:31 | NUR ---
Nutrition Followup Notes Pt wt is 58.1 kg Pt is positive for COVID, in isolation. Per RN notes, pt is restless, has mittens on and is restrained to prevent pulling lines and removing BIPAP. Pt is with a Cardiac diet, appetite is very poor d/t pt has been refusing meals, fluids, and is in an agitated state. Please refer to nutrition recommendations noted below under Comments. Consider Vital AF 1.2 @ 60 ml/hr goal rate as tolerated and per MD approval if pt appetite remains poor over the next 48 hours. Est energy needs 9838-1146 kcal (25-30 kcal/kg BW 61.1kg) Est protein needs 49-61g (0.8-1g/kg BW 61kg) Will monitor and reassess prn. LABS: BUN 26 H, ALB 2.5 L GI: Pt had 1 BM on 04/23 per RN doc. BS: 15 mod risk. Refer to wound assessment report for further details PES: Inadequate oral intake r/t current medical condition aeb pt with 32% avg PO intake per RN note Comments Will continue to monitor PO status, skin status, pertinent labs and weight trends. Will f/u in 3-5 days 1) Suggest supplemental EN or TPN nutrition support. If EN support is preferred, consider Vital AF 1.2 @ 60 ml/hr goal rate as tolerated and per MD approval 2) Continue current plan of care
[2020-04-28] MEDS: ERGOCALCIFEROL 50,000 UNIT(1.25MG) CAP PO SCH (16:45)
[2020-04-28] MEDS: REMDESIVIR 100mg in NS 230ml DAILYx4DAYS (NO VENT) IV SCH (16:58)
[2020-04-28] MEDS: ATORVASTATIN 20 MG TAB PO SCH (22:00)
[2020-04-29] VITALS (10 sets, daily range): BP systolic 117–162; BP diastolic 53–79
[2020-04-29] MEDS: LORazepam 2MG/ML-1ML VIAL IV PRN ×3 (01:01→18:05)
[2020-04-29 04:00] LABS: Albumin 2.6 g/dL (3.4-5.0); Calcium 8.8 mg/dL (8.5-10.1); Potassium 3.7 mmol/L (3.5-5.1)
[2020-04-29 04:03] LABS: Bilirubin, Total 0.7 mg/dL (0.2-1.0); Total Protein 6.7 g/dL (6.4-8.2)
[2020-04-29] MEDS: ALBUTEROL SULF HFA 90MCG INH 200DOSE IN SCH ×3 (06:00→22:10)
[2020-04-29] MEDS: BUDESONIDE (INHALATION) 180 MCG IH IN SCH ×2 (07:51→22:10)
--- NOTE | 2020-04-29 08:00 | NUR ---
OPENING SHIFT NOTE REPORT RECEIVED FROM EVENT STAFF MEMBER RN, MORNING ASSESSMENT PERFORMED AND DOCUMENTED, 84 YEAR OLD FEMALE, LAYING IN BED IN SUPINE POSITION, FATIGUED, CONFUSED. PATIENT ON CONTINUOUS BIPAP WITH ASPIRATION PRECAUTIONS AT THIS TIME. PATIENT REPOSITIONED FOR COMFORT AND TO MAINTAIN SKIN INTEGRITY. PUGA CATHETER PATENT AND DRAINING CLEAR/YELLOW URINE TO GRAVITY. RIGHT SITE FEMORAL CATHETER PATENT X1 WITH OTHER TWO CATHETERS NOT FUNCTIONING, AREA SECURED, PUGA CATHETER SECURED. WILL CONTINUE TO MONITOR.
--- NOTE | 2020-04-29 08:10 | NUR ---
RESTRAINT ASSESSMENT/DISCONTINUED RESTRAINTS RELEASED, SITE CHECKED, BILATERAL PULSES PRESENT, ATTEMPT TO PERFORM ORAL CARE WAS UNSUCCESSFUL, PATIENT BITING ON ORAL CARE SPONGE AND OXYGEN DECREASING QUICKLY, PATIENT UNABLE TO SWALLOW WATER AT THIS TIME DUE TO INCREASED COUGH. BILATERAL MITTENS REAPPLIED FOR PATIENT SAFETY - PATIENT ABLE TO MOVE ARMS FREELY, RESTRAINTS REMOVED AT THIS TIME. PATIENT IS CONFUSED, ALTER TO SELF ONLY BUT CALM, FATIGUED AND WEAK. MD WILL BE NOTIFIED OF RESTRAINTS REMOVED, FALL, SAFETY AND COVID PRECAUTIONS IN PLACE.
--- NOTE | 2020-04-29 08:20 | NUR ---
HOSPITALIST VISITS DR GILLETTE UPDATED ON PATIENT'S STATUS AND REPORTED IN ABILITY TO SWALLOW PER SPRAYER INSECTICIDE RN SHE COUGHS AND IS EXTREMELY FATIGUED AND PENDING SWALLOW EVALUATION. MD VERBALIZED UNDERSTANDING AND ORDERED PPN AFTER ASSESSING PATIENT AT BEDSIDE. MD ALSO AWARE PER SPRAYER INSECTICIDE REPORT THAT "PATIENT TAKES PSYCH MEDICATIONS AND WILL BE CALLING TO DAY WITH A LIST". MD VERBALIZED UNDERSTANDING.
[2020-04-29 08:44] LABS: Lactate Dehydrogenase 861 U/L (84-246)
[2020-04-29 08:45] LABS: CRP High Sensitivity > 19.0 mg/dL (< 0.3)
[2020-04-29] MEDS ORDERED: D5W/SOD CHLO 0.9% 1,000 ML IV ONE (08:45)
[2020-04-29] MEDS: ASCORBIC ACID 1,000 MG TAB PO SCH (10:00)
[2020-04-29] MEDS: ZINC SULFATE 220mg CAP or TAB PO SCH (10:00)
[2020-04-29] MEDS: CHOLECALCIFEROL (VITD3) 2,000 UNIT CAP PO SCH (10:00)
[2020-04-29] MEDS ORDERED: FUROSEMIDE 40 MG/4 ML VIAL IV SCH (10:00)
[2020-04-29] MEDS: GABAPENTIN 300 MG CAP PO SCH ×2 (10:00→22:00)
[2020-04-29] MEDS: cefTRIAXone 1GM/50ML D5W 50 ML IV SCH (10:13)
[2020-04-29] MEDS: DexAMETHasone SOD PHOS 10MG/1ML VIAL INJ IV SCH (10:13)
[2020-04-29] MEDS: ENOXAPARIN SOD 60 MG/0.6 ML SYRINGE SC SCH ×2 (10:15→22:00)
--- NOTE | 2020-04-29 10:17 | NUR ---
Family updated on pt status Family of EPIFANIO MAYS updated on patient's status and condition after password verification. All questions and concerns addressed. Patient's grandson verbalized understanding.
[2020-04-29] MEDS: DOXYCYCLINE 100MG/250ML 250 ML IV SCH ×2 (11:49→22:00)
[2020-04-29] MEDS ORDERED: TPN PER PHARMACY 0 ML IV SCH (13:00)
[2020-04-29 14:34] LABS: Magnesium 2.6 mg/dL (1.6-2.6); Phosphorus 3.3 mg/dL (2.5-4.90)
[2020-04-29 14:39] LABS: Pre Albumin 6.6 mg/dL (20.0-40.0)
--- NOTE | 2020-04-29 16:30 | NUR ---
COMFORT PARTIAL BEDDING CHANGED, MULUGETA/CATHETER CARE PROVIDED, PATIENT ABLE TO NOD HEAD WITH SIMPLE QUESTIONS BUT REMAINS FATIGUED AND RESTLESS, OTHERWISE PATIENT TOLERATED WELL. FALL AND SAFETY PRECAUTIONS IN PLACE. WILL CONTINUE TO MONITOR.
[2020-04-29] MEDS: REMDESIVIR 100mg in NS 230ml DAILYx4DAYS (NO VENT) IV SCH (17:09)
--- NOTE | 2020-04-29 18:25 | NUR ---
Respiratory note: BIPAP CHECK DONE FROM PTS ROOM DOOR DUE TO COVID PRECAUTIONS. RECEIVED PT ON BIPAP, BIPAP CONNECTED TO RED OUTLET AND O2 SOURCE. ALARMS ARE SET AND AUDIBLE. AMBU BAG AND MASK AT BEDSIDE, PT ON TOTAL FACE MASK ACTIVELY MOVING IN BED. WILL CONTINUE TO MONITOR.
[2020-04-29] MEDS ORDERED: TPN PER PHARMACY IV NR ×5 (20:00)
--- NOTE | 2020-04-29 20:00 | NUR ---
Opening Shift Note Received report from day shift RN Kamini. Pt came in on 04/20/20 with a CC of SOB. Pt was diagnosed with PNA/COVID and admitted to TELE. On 04/25/20 pt was requiring high amounts of oxygen so she was transferred to [facility]. Pt has received 3/4 doses of remdesivir and 1 unit of convalescent plasma in this visit. Pt's history includes HTN, CAD, Dementia, Depression Anxiety, stents, hypothyroid, high lipds, hysterectomy. All history obtained from previous RN and chart. Pt is currently in airborne isolation, confused, restless but is not trying to pull anything off. Pt able to nod "no" when asked if she is in pain. Pt tolerating bipap well. VSS spo2 at 96%. Bipap settings are 12/5 at 100%. Bed is locked at lowest position, side rails are up, call light is within reach. Pt instructed to call if she needs anything, reinforcement needed. Will continue to monitor.
[2020-04-29] MEDS: ATORVASTATIN 20 MG TAB PO SCH (22:00)
--- NOTE | 2020-04-29 22:10 | NUR ---
MDI AND DPI HELD DUE TO PT NOT TOLERATING BEING OFF BIPAP TO COORDINATE WITH TX. PT HAS BILATERAL MITTENS. WILL CONTINUE TO MONITOR.
--- NOTE | 2020-04-29 22:30 | NUR ---
IV insertion IV access obtained, via clean sterile technique by inserting 20 gauge catheter at left AC after 1 attempt. IV secured properly. No trauma to site. Patient tolerated well.
[2020-04-30] VITALS (13 sets, daily range): BP systolic 103–160; BP diastolic 49–85
[2020-04-30] MEDS ORDERED: DEXTROSE (50%) 50ML SYRG IV SCH
[2020-04-30 04:21] LABS: Albumin 2.6 g/dL (3.4-5.0); Calcium 8.5 mg/dL (8.5-10.1); Magnesium 2.7 mg/dL (1.6-2.6); Potassium 3.5 mmol/L (3.5-5.1)
[2020-04-30 04:27] LABS: BUN/Creatinine Ratio 35.9; Bilirubin, Total 0.5 mg/dL (0.2-1.0); Phosphorus 2.5 mg/dL (2.5-4.90); Total Protein 6.6 g/dL (6.4-8.2)
[2020-04-30] MEDS: ACCU-CHEK COMFORT CURVE STRIP VI SCH ×4 (05:35→17:54)
[2020-04-30] MEDS: ALBUTEROL SULF HFA 90MCG INH 200DOSE IN SCH ×3 (05:51→22:13)
[2020-04-30] MEDS: BUDESONIDE (INHALATION) 180 MCG IH IN SCH ×2 (05:51→22:13)
[2020-04-30] MEDS: InsuLIN REG 1unit/0.01ml Soln (100units/ml) SC SCH ×4 (05:54→17:55)
--- NOTE | 2020-04-30 07:45 | NUR ---
ASSESS- PT. LYING IN BED AWAKE, CONFUSED TIMES FOUR, HX. OF DEMENTIA. PT. RESTLESS IN BED, ANXIOUS AT TIMES. KVNG. HAND MITTENS IN PLACE TO PREVENT PULLING OF TUBES. ON BIPAP 05/06, FIO2-95%, FULL FACE MASK. LUNGS CLEAR KVNG. INSPIRATORY AND EXPIRATORY, DIMINISHED THROUGHOUT AND BASES KVNG. RR UPPER 20'S TO LOW 30'S. ABD. SOFT, FLAT, NON-TENDER. BOWEL SOUNDS ALL FOUR QUADRANTS. F/C TO GRAVITY WITH CLEAR LT. ANJUM URINE. RADIAL PULSES STRONG, PALPABLE KVNG. DORSALIS PEDAL PULSES STRONG, PALPABLE KVNG. NO EDEMA. RT. HAND WITH SKIN TEAR, DSG. D/I. TLC RT. FEMORAL INTACT, 2 PORTS CLOGGED. TPN AT 43 CC/HR. PT. MOVES ARMS AND LEGS KVNG. WITHOUT DIFFICULTY, TURNS SELF IN BED.
[2020-04-30] MEDS: cefTRIAXone 1GM/50ML D5W 50 ML IV SCH (09:15)
--- NOTE | 2020-04-30 09:15 | NUR ---
DR. GILLETTE Provider/Hospitalist at bedside. GAVE UPDATE ON PT.
[2020-04-30] MEDS: ENOXAPARIN SOD 60 MG/0.6 ML SYRINGE SC SCH ×2 (09:43→22:29)
[2020-04-30] MEDS: DOXYCYCLINE 100MG/250ML 250 ML IV SCH ×2 (09:43→22:23)
[2020-04-30] MEDS: DexAMETHasone SOD PHOS 10MG/1ML VIAL INJ IV SCH (09:44)
[2020-04-30] MEDS: ZINC SULFATE 220mg CAP or TAB PO SCH (10:00)
[2020-04-30] MEDS: CHOLECALCIFEROL (VITD3) 2,000 UNIT CAP PO SCH (10:00)
[2020-04-30] MEDS: ASCORBIC ACID 1,000 MG TAB PO SCH (10:00)
[2020-04-30] MEDS: GABAPENTIN 300 MG CAP PO SCH ×2 (10:00→22:00)
--- NOTE | 2020-04-30 12:00 | NUR ---
PT. REMAINS ON BIPAP 12/5, FIO2-95%. RR 30'S. O2 SATS 92%-95%. LUNGS CLEAR KVNG. INSPIRATORY AND EXPIRATORY, DIMINISHED BASES VKNG. AND THROUGHOUT. NO COUGH.
--- NOTE | 2020-04-30 12:05 | NUR ---
Nutrition Followup Notes Pt wt is 52.5 kg Pt is positive for COVID, in isolation. Pt is on BIPAP, pt to be NPO with TPN being initiated at 43 ml/hr providing 1050 kcal, 50g protein, 850 NPCs. This provides 57-69% of energy needs and 82-102% of protein needs. Continue to advance TPN to meet >75% of energy needs Est energy needs 9768-3005 kcal (25-30 kcal/kg BW 61.1kg) Est protein needs 49-61g (0.8-1g/kg BW 61kg) Will monitor and reassess prn. LABS: Na 149H, BUn 33H, GLUC 150H, Alb 2.6l GI: Pt had 4 BMs on 04/29 per RN doc. BS: 16 mod risk. Refer to wound assessment report for further details PES: Inadequate oral intake r/t current medical condition aeb pt with 32% avg PO intake per RN note Comments Will continue to monitor PO status, skin status, pertinent labs and weight trends. Will f/u in 2-3 days 1) Continue to advance TPN to meet >75% of needs 2) advance diet as medically feasible, conduct swallow eval prior to adv diet 3) Continue current plan of care
[2020-04-30] MEDS: LORazepam 2MG/ML-1ML VIAL IV PRN (14:12)
--- NOTE | 2020-04-30 14:12 | NUR ---
PT'S. RR LOW 30'S THROUGHOUT THE DAY. PT. IS RESTLESS IN BED. MED. WITH ATIVAN 0.5 MG. IVP. CONTINUING TO MONITOR PT.
--- NOTE | 2020-04-30 14:40 | NUR ---
PT. NO LONGER ANXIOUS, CALM. RESTING WITH EYES CLOSED. RR DECREASED DOWN TO 20-21. O2 SATS HAVE INCREASED TO 97%-98%. NO SIGNS OF RESP. DISTRESS.
--- NOTE | 2020-04-30 17:25 | NUR ---
TEMP 95.7 AX. PLACED WARM BLANKET ON PT.
--- NOTE | 2020-04-30 19:45 | NUR ---
Opening Shift Note Received report from day shift RN Jessica. Pt came in on 04/20/20 with a CC of SOB. Pt was diagnosed with PNA/COVID and admitted to TELE. On 04/25/20 pt was requiring high amounts of oxygen so she was transferred to [facility]. Pt has received 3/4 doses of remdesivir and 1 unit of convalescent plasma in this visit. Pt's history includes HTN, CAD, Dementia, Depression Anxiety, stents, hypothyroid, high lipds, hysterectomy. All history obtained from previous RN and chart. Pt is currently in airborne isolation, confused, restless but is not trying to pull anything off. Pt tolerating bipap well. VSS spo2 at 96%. Bipap settings are 12/5 at 95%. All pulses palpable, skin is pink and warm to touch. Bed is locked at lowest position, side rails are up, call light is within reach. Pt instructed to call if she needs anything, reinforcement needed. Will continue to monitor.
[2020-04-30] MEDS ORDERED: TPN PER PHARMACY IV NR ×8 (20:00)
[2020-04-30] MEDS: ATORVASTATIN 20 MG TAB PO SCH (22:00)
[2020-05-01] VITALS (12 sets, daily range): BP systolic 99–155; BP diastolic 51–77
--- NOTE | 2020-05-01 02:30 | NUR ---
Linen Change Linen change completed at this time. Pt tolerated will. Will continue to monitor
--- NOTE | 2020-05-01 04:00 | NUR ---
Blood drawn and sent to lab
[2020-05-01] MEDS: BUDESONIDE (INHALATION) 180 MCG IH IN SCH ×2 (06:00→06:09)
[2020-05-01] MEDS: ACCU-CHEK COMFORT CURVE STRIP VI SCH ×4 (06:00→18:00)
[2020-05-01] MEDS: ALBUTEROL SULF HFA 90MCG INH 200DOSE IN SCH ×3 (06:00→14:37)
[2020-05-01] MEDS: InsuLIN REG 1unit/0.01ml Soln (100units/ml) SC SCH ×4 (06:00→18:00)
[2020-05-01 06:16] LABS: Albumin 2.3 g/dL (3.4-5.0); Calcium 8.5 mg/dL (8.5-10.1); Magnesium 2.4 mg/dL (1.6-2.6); Potassium 3.3 mmol/L (3.5-5.1)
[2020-05-01 06:19] LABS: BUN/Creatinine Ratio 39.2; Bilirubin, Total 0.5 mg/dL (0.2-1.0); Phosphorus 2.5 mg/dL (2.5-4.90); Total Protein 6.7 g/dL (6.4-8.2)
[2020-05-01] MEDS ORDERED: POTASSIUM CHL 20MEQ/100ML 100 ML IV ONE (09:00)
[2020-05-01] MEDS: cefTRIAXone 1GM/50ML D5W 50 ML IV SCH (09:11)
[2020-05-01] MEDS: LORazepam 2MG/ML-1ML VIAL IV PRN (09:18)
[2020-05-01] MEDS: CHOLECALCIFEROL (VITD3) 2,000 UNIT CAP PO SCH (10:00)
[2020-05-01] MEDS: ASCORBIC ACID 1,000 MG TAB PO SCH (10:00)
[2020-05-01] MEDS: GABAPENTIN 300 MG CAP PO SCH ×2 (10:00→22:00)
[2020-05-01] MEDS: ZINC SULFATE 220mg CAP or TAB PO SCH (10:00)
[2020-05-01] MEDS: DexAMETHasone SOD PHOS 10MG/1ML VIAL INJ IV SCH (10:05)
[2020-05-01] MEDS: DOXYCYCLINE 100MG/250ML 250 ML IV SCH ×2 (10:05→22:03)
[2020-05-01] MEDS: ENOXAPARIN SOD 60 MG/0.6 ML SYRINGE SC SCH ×2 (10:06→22:04)
--- NOTE | 2020-05-01 10:30 | NUR ---
RECEIVED PHONE CALL FROM SON VERIFIED CORRECT PASSWORD. UPDATED ON PATIENT STATUS AND POOR PROGNOSIS, ALL QUESTIONS ADDRESSED AT THIS TIME.
--- NOTE | 2020-05-01 11:41 | NUR ---
MD GILLETTE AT BEDSIDE UPDATED ON PATIENT STATUS. NON NEW ORDERS RECEIVED
--- NOTE | 2020-05-01 18:28 | NUR ---
COMPLETE LINEN CHANGE SKIN REASSESSED AND NO NEW BREAK DOWN NOTED. POSITIONED PATIENT FOR COMFORT
[2020-05-01] MEDS ORDERED: TPN PER PHARMACY IV NR ×9 (20:00)
--- NOTE | 2020-05-01 20:00 | NUR ---
Opening Shift Note Assumed care of patient, awake and alert but confused. No S/S of distress/SOB or pain. Instructed on POC and to call for assist PRN, will continue to monitor for changes. TPN infusing. Pt on Bipap O2sat 85, called RT and she was turned up to 100% FiO2. Mittens on for safety. Son called, phone held to pt's ear, pt seemed to respond well.
[2020-05-01] MEDS: ATORVASTATIN 20 MG TAB PO SCH (22:00)
[2020-05-02] VITALS (10 sets, daily range): BP systolic 104–167; BP diastolic 56–77
[2020-05-02] MEDS: ACCU-CHEK COMFORT CURVE STRIP VI SCH ×5 (00:19→23:57)
--- NOTE | 2020-05-02 00:37 | NUR ---
Pt remains stable at this time. Mittens in place. Waves legs around and crosses them in the air but is remaining in the bed. RN watching closely. No S/S of distress or pain. Will continue to monitor.
[2020-05-02] MEDS: ALBUTEROL SULF HFA 90MCG INH 200DOSE IN SCH (06:00)
[2020-05-02] MEDS: InsuLIN REG 1unit/0.01ml Soln (100units/ml) SC SCH ×5 (06:00→23:57)
[2020-05-02] MEDS: BUDESONIDE (INHALATION) 180 MCG IH IN SCH (06:10)
[2020-05-02 07:40] LABS: Potassium 3.7 mmol/L (3.5-5.1)
[2020-05-02 07:52] LABS: Albumin 2.3 g/dL (3.4-5.0); BUN/Creatinine Ratio 36.2; Bilirubin, Total 0.5 mg/dL (0.2-1.0); Calcium 8.4 mg/dL (8.5-10.1); Magnesium 2.2 mg/dL (1.6-2.6); Phosphorus 3.7 mg/dL (2.5-4.90); Total Protein 6.8 g/dL (6.4-8.2)
--- NOTE | 2020-05-02 08:45 | NUR ---
AM ASSESSMENT COMPLETED PT EASILY WOKEN UP ,ON FULL FACE BIPAP AT 100% FIO2 , 12/5 SPO2 IN THE MID 90'S. PT NON VERBAL HAS MITTENS ON BUE TO PREVENT FROM PULLING OUT MEDICAL DEVICES. ORAL CARE RENDERED AND REPOSITIONED FOR COMFORT, PT NPO FOR ASPIRATION PRECAUTIONS. PT FIGHTING ORAL CARE, MOUTH HAS DRY CRUST ON MOUTH AND TONGUE FROM THE BIPAP COOL DRY AIR. PT SKIN REMAINS INTACT.EXCEPT FOR A LT FLANK BRUISE.
[2020-05-02] MEDS: DOXYCYCLINE 100MG/250ML 250 ML IV SCH ×2 (11:57→20:30)
[2020-05-02] MEDS: DexAMETHasone SOD PHOS 10MG/1ML VIAL INJ IV SCH (11:57)
[2020-05-02] MEDS: CHOLECALCIFEROL (VITD3) 2,000 UNIT CAP PO SCH (11:58)
[2020-05-02] MEDS: ZINC SULFATE 220mg CAP or TAB PO SCH (11:58)
[2020-05-02] MEDS: ASCORBIC ACID 1,000 MG TAB PO SCH (11:58)
[2020-05-02] MEDS: GABAPENTIN 300 MG CAP PO SCH ×2 (11:58→20:31)
--- NOTE | 2020-05-02 12:12 | NUR ---
Nutrition Followup Notes Wt: 57.7 kg Pt is positive for COVID, in isolation. Pt is on BIPAP, NPO with TPN at 67 ml/hr providing 1670 kcal, 70g protein, 1390 NPCs. This provides 90-109% of energy needs and 114-142% of protein needs. Est energy needs 0799-2855 kcal (25-30 kcal/kg BW 61.1kg), Est protein needs 49-61g (0.8-1g/kg BW 61kg). Will monitor and reassess prn. LABS: BUN 25 H CA 8.4 L ALB 2.3 L GI: Pt had 4 BMs on 04/29 per RN doc. BS: 16 mod risk. Refer to wound assessment report for further details PES: Inadequate oral intake r/t current medical condition aeb pt with 32% avg PO intake per RN note Comments Will continue to monitor NPO status, PN tolerance, skin status, pertinent labs and weight trends. Will f/u in 2-3 days 1) Continue to advance TPN to meet >75% of needs 2) advance diet as medically feasible, conduct swallow eval prior to adv diet 3) Continue current plan of care
[2020-05-02] MEDS: ALBUTEROL SULF 2.5 MG/0.5ML(0.5%) NEB SOLN NEB SCH ×2 (13:54→22:52)
[2020-05-02] MEDS: ENOXAPARIN SOD 60 MG/0.6 ML SYRINGE SC SCH ×2 (15:03→20:29)
[2020-05-02] MEDS: cefTRIAXone 1GM/50ML D5W 50 ML IV SCH (15:03)
--- NOTE | 2020-05-02 19:45 | NUR ---
Opening Shift Note Assumed care of patient, awake and alert and oriented x1 (self). No S/S of respiratory distress/SOB or pain noted. Bipap on patient 12/5 with Fio2 at 100% and oxygen saturation in the 90's, tolerating well. Instructed patient on POC and to call for assist PRN, will continue to monitor for changes Q1hr and PRN. Bed low to floor and call light within reach.
[2020-05-02] MEDS ORDERED: POTASSIUM ACETATE IV NR ×10 (20:00)
[2020-05-02] MEDS ORDERED: [UNRECOGNIZED DRUG - OTHER] IV NR ×10 (20:00)
[2020-05-02] MEDS ORDERED: FAT EMULSION IV NR ×10 (20:00)
[2020-05-02] MEDS ORDERED: POTASSIUM PHOSPHATE IV NR ×10 (20:00)
[2020-05-02] MEDS: ATORVASTATIN 20 MG TAB PO SCH (20:31)
[2020-05-02] MEDS: LORazepam 2MG/ML-1ML VIAL IV PRN (22:30)
--- NOTE | 2020-05-02 22:45 | NUR ---
Hygiene care Patient noted to have a BM, pericare performed with warm soapy wash cloth, and partial linen changed, patient repositioned for comfort tolerated well.
[2020-05-02] MEDS: BUDESONIDE (INHALATION) 0.5 MG/2 ML NEB NEB SCH (22:52)
[2020-05-03] VITALS (19 sets, daily range): BP systolic 116–166; BP diastolic 43–98
[2020-05-03] MEDS: LORazepam 2MG/ML-1ML VIAL IV PRN (02:30)
--- NOTE | 2020-05-03 04:38 | NUR ---
Family updated on pt status Family of EPIFANIO MAYS updated on patient's status and condition with password verification. All questions and concerns addressed. Patients daughter, Nida,verbalized understanding.
[2020-05-03 04:51] LABS: Albumin 2.1 g/dL (3.4-5.0); Calcium 8.6 mg/dL (8.5-10.1); Magnesium 2.4 mg/dL (1.6-2.6); Potassium 3.7 mmol/L (3.5-5.1)
[2020-05-03 04:55] LABS: BUN/Creatinine Ratio 42.9; Bilirubin, Total 0.6 mg/dL (0.2-1.0); Total Protein 6.9 g/dL (6.4-8.2)
[2020-05-03] MEDS: ACCU-CHEK COMFORT CURVE STRIP VI SCH ×3 (05:09→17:15)
[2020-05-03] MEDS: InsuLIN REG 1unit/0.01ml Soln (100units/ml) SC SCH ×3 (05:10→18:27)
[2020-05-03] MEDS: BUDESONIDE (INHALATION) 0.5 MG/2 ML NEB NEB SCH ×2 (06:06→21:55)
[2020-05-03] MEDS: ALBUTEROL SULF 2.5 MG/0.5ML(0.5%) NEB SOLN NEB SCH ×3 (06:06→21:55)
--- NOTE | 2020-05-03 06:12 | NUR ---
Respiratory note: RECEIVED PATIENT ON V60 RENTAL BIPAP FITTED WITH A SIZE "B" CRADLE MASK. NO REDNESS OR BREAKDOWN NOTED . PATIENT IS RESTING COMFORTABLY AND TOLERATING BIPAP WELL, NO CHANGES MADE AT THIS TIME. BIPAP PLUGGED INTO RED OUTLET AND ALL ALARMS ARE SET AND AUDIBLE. WILL CONTINUE TO ASSESS PATIENT WELL BIPAP FUNCTION. [employer] RUN INLINE.
--- NOTE | 2020-05-03 07:17 | NUR ---
End shift note Report given to and care endorsed to Brandee MICHAELS.
[2020-05-03] MEDS: ENOXAPARIN SOD 60 MG/0.6 ML SYRINGE SC SCH ×2 (07:38→23:59)
[2020-05-03] MEDS: GABAPENTIN 300 MG CAP PO SCH ×3 (07:39→22:00)
[2020-05-03] MEDS: CHOLECALCIFEROL (VITD3) 2,000 UNIT CAP PO SCH ×2 (07:39→10:00)
[2020-05-03] MEDS: ZINC SULFATE 220mg CAP or TAB PO SCH ×2 (07:39→10:00)
[2020-05-03] MEDS: ASCORBIC ACID 1,000 MG TAB PO SCH ×2 (07:39→10:00)
--- NOTE | 2020-05-03 08:00 | NUR ---
Opening Shift Note Assumed care of patient, laying in bed, eyes closed, arousable to name, oriented to self only, re-orientation done. No S/S of distress/SOB or pain. Patient on BIPAP 12/5, rate 12, 100% FIO2, saturation 93%. See interventions for complete assessment. Bed locked on low position, side rails up x2, bed alarms on at all times, will continue to monitor for changes Q1hr and PRN.
[2020-05-03] MEDS: cefTRIAXone 1GM/50ML D5W 50 ML IV SCH (09:21)
[2020-05-03] MEDS: DexAMETHasone SOD PHOS 10MG/1ML VIAL INJ IV SCH (09:22)
--- NOTE | 2020-05-03 09:41 | NUR ---
Received call from patient's grandclyde Wilson who's able to provide password, updated on patient's status and POC, verbalized understanding. All questions and concerns addressed. Will continue to monitor.
[2020-05-03] MEDS: DOXYCYCLINE 100MG/250ML 250 ML IV SCH ×2 (09:56→23:59)
[2020-05-03] MEDS ORDERED: MIDAZOLAM DRIP 50 mg/50mL 50 ML IV ONE (10:43)
[2020-05-03] MEDS ORDERED: ETOMIDATE (2MG/ML) 20ML VIAL IV ONE (10:44)
[2020-05-03] MEDS ORDERED: SUCCINYLCHOLINE CHLORIDE 20 MG/ML 10ML VIAL IV ONE (10:45)
--- NOTE | 2020-05-03 11:45 | NUR ---
Dr Rolon in [facility], updated on patient's status. This RN and MD spoke to patient's daughter Lizeth Samayoa over the phone regarding code status. Per daughter they want patient DNR, no CPR, no intubation stating "We don't want her to go through those difficulties, let her go peacefully just in case."
--- NOTE | 2020-05-03 14:01 | NUR ---
Received call from patient's daughter Renetta who's able to provide password. Updated on patient's status and POC, verbalized understanding. All questions and concerns addressed.
--- NOTE | 2020-05-03 19:05 | NUR ---
Patient had small amount of brown, pasty bowel movement. Patient given perineal care. Skin integrity assessed for any changes. Optifoam placed on sacrum. Linens changed. Patient repositioned for comfort.
[2020-05-03] MEDS ORDERED: TPN PER PHARMACY IV NR ×8 (20:00)
[2020-05-03] MEDS: ATORVASTATIN 20 MG TAB PO SCH (22:00)
[2020-05-04] VITALS (13 sets, daily range): BP systolic 103–142; BP diastolic 33–76
[2020-05-04] MEDS: InsuLIN REG 1unit/0.01ml Soln (100units/ml) SC SCH ×5 (00:43→23:49)
[2020-05-04] MEDS: ALBUTEROL SULF 2.5 MG/0.5ML(0.5%) NEB SOLN NEB SCH ×2 (06:00→13:36)
[2020-05-04] MEDS: BUDESONIDE (INHALATION) 0.5 MG/2 ML NEB NEB SCH (06:00)
--- NOTE | 2020-05-04 06:55 | NUR ---
Dr. Rolon at bedside
--- NOTE | 2020-05-04 07:00 | NUR ---
Opening note Assumed care of patient at this time. Report received from JOSE MANUEL RN. POC reviewed, head to toe assessment complete, see intervention spreadsheet for complete details. Received pt on Bipap. VSS. Pt opens eyes and moved independently but does not follow commands at this time. Received pt with mittens on hands bilaterally for patient safety. Pt has sanders catheter draining to gravity. IV sites benign. Bed locked and in lowest position, safety precautions in place. Will monitor pt carefully.
--- NOTE | 2020-05-04 07:00 | NUR ---
No changes this shift. Mental status unchanged. Continues to uncover self and wave legs in air. Mittens in place for safety. TPN infused this shift. signed DNR this morning. Report given, care endorsed.
[2020-05-04] MEDS: ACCU-CHEK COMFORT CURVE STRIP VI SCH ×5 (08:02→23:27)
[2020-05-04 08:21] LABS: Potassium 4.2 mmol/L (3.5-5.1)
[2020-05-04 08:27] LABS: Bilirubin, Total 0.4 mg/dL (0.2-1.0); Calcium 8.5 mg/dL (8.5-10.1); Magnesium 2.2 mg/dL (1.6-2.6); Phosphorus 3.4 mg/dL (2.5-4.90); Total Protein 6.8 g/dL (6.4-8.2)
[2020-05-04] MEDS: cefTRIAXone 1GM/50ML D5W 50 ML IV SCH (09:15)
[2020-05-04] MEDS: ASCORBIC ACID 1,000 MG TAB PO SCH (10:00)
[2020-05-04] MEDS: ZINC SULFATE 220mg CAP or TAB PO SCH (10:00)
[2020-05-04] MEDS: GABAPENTIN 300 MG CAP PO SCH ×2 (10:00→22:00)
[2020-05-04] MEDS: CHOLECALCIFEROL (VITD3) 2,000 UNIT CAP PO SCH (10:00)
[2020-05-04] MEDS: DOXYCYCLINE 100MG/250ML 250 ML IV SCH ×2 (10:08→22:53)
[2020-05-04] MEDS: ENOXAPARIN SOD 60 MG/0.6 ML SYRINGE SC SCH ×2 (10:08→22:53)
[2020-05-04] MEDS: DexAMETHasone SOD PHOS 10MG/1ML VIAL INJ IV SCH (10:10)
[2020-05-04 13:58] LABS: Albumin 2.1 g/dL (3.4-5.0); BUN/Creatinine Ratio 38.7; Calcium 8.3 mg/dL (8.5-10.1); Potassium 4.8 mmol/L (3.5-5.1)
[2020-05-04 14:01] LABS: Bilirubin, Total 0.3 mg/dL (0.2-1.0)
--- NOTE | 2020-05-04 14:31 | NUR ---
Nutrition Followup Notes Wt: 56.5 kg Pt is positive for COVID, in isolation. Pt is 100% on BIPAP per MD note, NPO d/t high risk of aspiration, with TPN at 83 ml/hr providing 1880 kcal, 80g protein, 1560 NPCs. PN support meets 102-123% of est energy needs and 131-163% of est protein needs. Est energy needs 0014-7745 kcal (25-30 kcal/kg BW 61.1kg), Est protein needs 49-61g (0.8-1g/kg BW 61kg). Will monitor and reassess prn. LABS: BUN 26 H, Gluc 152 H, ALB 2.0 L, AST 62 H, ALT 57 H, ALK PHOS 190 H GI: Pt had 1 BM on 05/03 per RN doc. BS: 15 mod risk. Refer to wound assessment report for further details PES: Inadequate oral intake r/t current medical condition aeb pt with 32% avg PO intake per RN note Comments Will continue to monitor NPO status, PN tolerance, skin status, pertinent labs and weight trends. Will f/u in 2-3 days 1) Continue to advance TPN to meet >75% of needs (Resolved) 2) Advance diet as medically feasible, conduct swallow eval prior to adv diet 3) Continue current plan of care
--- NOTE | 2020-05-04 18:51 | NUR ---
Shift summary PT continues to move around in bed, pt does not follow commands. VS have remained stable with supplemental oxygen. Spoke with several family members and was able to place the patient's bedside phone by her ear so the family could speak to her. Safety maintained through out shift. Will continue with care.
--- NOTE | 2020-05-04 19:00 | NUR ---
RECEIVED REPORT FROM NURSE BARBOZA TO RESUME CARE OF PATIENT.
[2020-05-04] MEDS ORDERED: TPN PER PHARMACY IV NR ×9 (20:00)
[2020-05-04] MEDS: ATORVASTATIN 20 MG TAB PO SCH (22:00)
[2020-05-05] VITALS (15 sets, daily range): BP systolic 54–129; BP diastolic 20–53
--- NOTE | 2020-05-05 | NUR ---
BS-232 8 UNITS REGULAR INSULIN GIVEN
[2020-05-05 04:33] LABS: Basophils # (auto) 0 10 ^3/uL (0-0.2); Eosinophils # (auto) 0 10 ^3/uL (0-0.8); Lymphocytes # (auto) 0.5 10 ^3/uL (0.4-5.4); Monocytes # (auto) 0.8 10 ^3/uL (0-1.3)
[2020-05-05 04:37] LABS: Basophils % (auto) 0.2 % (0.0-2.0); Hematocrit 38.4 % (36.0-46.0); Hemoglobin 12.1 g/dL (12.2-16.2); Lymphocytes % (auto) 2.7 % (10.0-50.0); Mean Corpuscular Hgb Conc. 31.4 g/dL (32.0-36.0); Neutrophils # (auto) 15.4 10 ^3/uL (1.6-8.6); Neutrophils % (auto) 92.1 % (37.0-80.0); Platelet Count (auto) 207 10^3/uL (140-450); Red Blood Cells 4.47 10^6/uL (4.0-5.20); Red Cell Distribution Width 16.9 % (11.8-14.3); White Blood Cell 16.7 10^3/uL (4.4-10.8)
[2020-05-05 04:41] LABS: Albumin 1.9 g/dL (3.4-5.0); Calcium 8.3 mg/dL (8.5-10.1); Magnesium 2.2 mg/dL (1.6-2.6); Potassium 4.9 mmol/L (3.5-5.1)
--- NOTE | 2020-05-05 04:43 | NUR ---
UPDATED FAMILY DAUGHTER BREE, PASSWORD CONFIRMED. UPDATED DAUGHTER REGARDING PATIENT STATUS AND PLAN OF CARE. INFORMED DAUGHTER NOT ALL HOME MEDICATIONS ARE CONTINUED DEPENDING ON THE PHYSICIAN IF THEY WANT TO CONTINUE THEM OR MAYBE CONTRAINDICATED DURING THIS ADMISSION.
[2020-05-05 04:46] LABS: BUN/Creatinine Ratio 45.1; Bilirubin, Total 0.3 mg/dL (0.2-1.0); Phosphorus 5.3 mg/dL (2.5-4.90); Total Protein 6.4 g/dL (6.4-8.2)
[2020-05-05] MEDS: ACCU-CHEK COMFORT CURVE STRIP VI SCH ×3 (05:33→17:45)
[2020-05-05] MEDS: BUDESONIDE (INHALATION) 0.5 MG/2 ML NEB NEB SCH (05:59)
[2020-05-05] MEDS: ALBUTEROL SULF 2.5 MG/0.5ML(0.5%) NEB SOLN NEB SCH ×2 (05:59→14:22)
[2020-05-05] MEDS: InsuLIN REG 1unit/0.01ml Soln (100units/ml) SC SCH ×3 (06:00→17:46)
--- NOTE | 2020-05-05 08:00 | NUR ---
Assumed care of patient. No S/S of distress/SOB or pain. See interventions for complete assessment. Bed locked on low position, side rails up x2, bed alarms on at all times, will continue to monitor for changes Q1hr and PRN.
--- NOTE | 2020-05-05 09:00 | NUR ---
Received call from patient's grandson Steve who's able to provide password. Updated on patient's status and POC, verbalized understanding. All questions and concerns addressed.
[2020-05-05] MEDS: CHOLECALCIFEROL (VITD3) 2,000 UNIT CAP PO SCH (10:00)
[2020-05-05] MEDS: ASCORBIC ACID 1,000 MG TAB PO SCH (10:00)
[2020-05-05] MEDS: ZINC SULFATE 220mg CAP or TAB PO SCH (10:00)
[2020-05-05] MEDS: GABAPENTIN 300 MG CAP PO SCH ×2 (10:00→19:32)
[2020-05-05] MEDS: cefTRIAXone 1GM/50ML D5W 50 ML IV SCH (10:12)
[2020-05-05] MEDS: DOXYCYCLINE 100MG/250ML 250 ML IV SCH (10:12)
[2020-05-05] MEDS: ENOXAPARIN SOD 60 MG/0.6 ML SYRINGE SC SCH (10:13)
[2020-05-05] MEDS: DexAMETHasone SOD PHOS 10MG/1ML VIAL INJ IV SCH (10:13)
--- NOTE | 2020-05-05 11:00 | NUR ---
Dr Rolon at bedside, updated on patient's status. Informed of patient low BP, 80's to 90's. Patient seen and examined. Will carry out new orders.
--- NOTE | 2020-05-05 14:07 | NUR ---
Spoke to patient's daughter Lizeth over the phone who's able to provide password. Updated on patient's status and POC, verbalized understanding. Family to come in and see patient briefly. Dr Thomason aware.
--- NOTE | 2020-05-05 15:20 | NUR ---
Patient's daughter Lizeth and grandson Steve at bedside. All questions and concerns addressed.
--- NOTE | 2020-05-05 15:30 | NUR ---
Patient had small amount of brown formed stool. Patient perineal care rendered. Skin integrity assessed for any changes. Linens changed. Patient repositioned for comfort.
--- NOTE | 2020-05-05 16:22 | NUR ---
Patient's BP 60's/20's, Dr Rolon aware.
[2020-05-05] MEDS: ERGOCALCIFEROL 50,000 UNIT(1.25MG) CAP PO SCH (16:45)
--- NOTE | 2020-05-05 17:33 | NUR ---
Received call from patient's grandson Steve 15 minutes ago revoking patient's DNR status stating "We want you to give medications to keep her blood pressure up." Spoke to patient's daughter and KRISTEN Stanley for clarification and stated "No, continue DNR status."
[2020-05-05] MEDS: ATORVASTATIN 20 MG TAB PO SCH (19:31)
--- NOTE | 2020-05-05 19:33 | NUR ---
REPORT RECEIVED REPORT FROM NURSE ELLE TO RESUME CARE OF PATIENT
--- NOTE | 2020-05-05 19:40 | NUR ---
FAMILY UPDATED GRANDSON MICHAEL, [employer] CONFIRMED. INFORMED GRANDSON PATIENT STATUS.
[2020-05-05] MEDS ORDERED: TPN PER PHARMACY IV NR ×10 (20:00)
--- NOTE | 2020-05-05 20:53 | NUR ---
PAGED HOSPITALIST TO GET ORDERS TO DOWNGRADE PATIENT PATIENT CURRENTLY DNR
--- NOTE | 2020-05-05 21:20 | NUR ---
HOSPITALIST PATIENT HAD PASSED @ 2110 TELEMETRY STRIPED CAPTURED. HOSPITALIST AT BEDSIDE TO PRONOUNCE PATIENT @2110.
--- NOTE | 2020-05-05 21:30 | NUR ---
FAMILY UPDATE GRANDSON MICHAEL CALLED, [employer] CONFIRMED, INFORMED HIM THAT PATIENT HAD JUST PASSED @ 2110.
--- NOTE | 2020-05-05 21:33 | NUR ---
FAMILY CONTACT POA/DAUGHTER JOSE G MULLINS INFORMED HER PATIENT HAS PASSED @ 2110. JOSE G STATES SHE HAS NO MORTUARY ARRANGEMENTS, BUT WILL CALL IN AM AND INFORM [facility] TO HAVE BODY RELEASED.
--- NOTE | 2020-05-05 21:50 | NUR ---
[facility][id number] RELEASE THE BODY DUE TO COVID.
--- NOTE | 2020-05-05 21:58 | NUR ---
FLATBED DRIVER OFFICE FLATBED DRIVER ROQUE MONROE CALLED BACK, STATES SINCE PATIENT IS COVID BODY IS TO BE RELEASED TO MORTUARY. NO CORONERS CASE.
== END 2020-05-05 21:50 | disposition expired | DRG 177 ==
LOC: ER 15:48 → EDBD 15:48 → TELE 15:49 → TELE-EAST 04-21 07:58 → DOU IN ICU 04-25 14:21
PROVIDERS: ADMIT Internal Medicine; ATTEND Internal Medicine
PROC: XW13325 Transfusion of Convalescent Plasma (Nonautologous) into Peripheral Vein, Percutaneous Approach, New Technology Group 5 (ICD-10-PCS; principal; 2020-04-24)
PROC: 5A09357 Assistance with Respiratory Ventilation, Less than 24 Consecutive Hours, Continuous Positive Airway Pressure (ICD-10-PCS; 2020-04-25)
PROC: XW033E5 Introduction of Remdesivir Anti-infective into Peripheral Vein, Percutaneous Approach, New Technology Group 5 (ICD-10-PCS; 2020-04-25)
DX: U07.1 COVID-19 (principal); J12.89 Other viral pneumonia; J96.01 Acute respiratory failure with hypoxia; E87.0 Hyperosmolality and hypernatremia; J93.9 Pneumothorax, unspecified; J91.8 Pleural effusion in other conditions classified elsewhere; I25.10 Atherosclerotic heart disease of native coronary artery without angina pectoris; E78.5 Hyperlipidemia, unspecified; E55.9 Vitamin D deficiency, unspecified; Z66 Do not resuscitate; Z90.5 Acquired absence of kidney; Z90.710 Acquired absence of both cervix and uterus; Z91.19 Patient's noncompliance with other medical treatment and regimen; Z98.61 Coronary angioplasty status; I12.9 Hypertensive chronic kidney disease with stage 1 through stage 4 chronic kidney disease, or unspecified chronic kidney disease; N18.2 Chronic kidney disease, stage 2 (mild)
CPT/HCPCS: 36415; 36600; 71045; 80048; 80053; 81001; 82040; 82306; 82728; 82805; 82962; 83036; 83605; 83615; 83735; 83880; 84100; 84478; 84484; 85025; 85379; 86141; 86850; 86900; 86901; 87040; 87426; 93005; 94640; 94660; 96365; 96366; 96375; 99291; G0378; J0330; J0696; J1100; J1815; J2250; J3480; J3490; J7131; P9047